=== PATIENT | male | born 1960 | race Caucasian/White ===

== ENCOUNTER 2016-06-18 16:26 | Inpatient (IN) | payer MEDICAID, OTHER, SELFPAY ==
[~2016-06-18] VITALS: Ht 167.6 cm; Wt 99.7 kg
[2016-06-18] MEDS ORDERED: ONDANSETRON 2MG/ML, 2ML ONE (17:20)
[2016-06-18] MEDS ORDERED: ASPIRIN 81 MG TABLET CHEW ONE (17:20)
[2016-06-18] MEDS ORDERED: KETOROLAC 30 MG/1 ML ONE (17:20)
[2016-06-18] MEDS ORDERED: LORazepam 2 MG/ML, 1ML ONE (17:21)
[2016-06-18] MEDS ORDERED: ONDANSETRON 2MG/ML, 2ML IVPush ONE (17:30)
[2016-06-18] MEDS ORDERED: ASPIRIN 81 MG TABLET CHEW PO ONE (17:30)
[2016-06-18] MEDS ORDERED: SODIUM CHLORIDE FLUSH 10ML SYR IVF ONE ×2 (17:30→19:00)
[2016-06-18] MEDS ORDERED: LORazepam 2 MG/ML, 1ML IVPush ONE (17:30)
[2016-06-18] MEDS ORDERED: KETOROLAC 30 MG/1 ML IVPush ONE (17:30)
[2016-06-18 17:45] LABS: ASPARTATE AMINO TRANSFERASE 13 U/L (15-37); BLOOD UREA NITROGEN 14 mg/dL (7-18)
[2016-06-18 17:51] LABS: IS PT STATUS REG ER OR PRE ER? YES
[2016-06-18 18:22] LABS: DIFF TOTAL CELLS COUNTED 100 CELL DIFF
[2016-06-18 18:25] LABS: MONOS WITH VACUOLES 1+; VERIFY COUNTS? YES
[2016-06-18] MEDS ORDERED: SODIUM CHLORIDE 0.9% 1,000 ML IV ONE (18:47)
[2016-06-18 18:53] LABS: DAU SCREEN DISCLAIMER
[2016-06-18] MEDS ORDERED: CEFTRIAXONE PMX 1GM/50ML 50 ML IVPB ONE (19:00)
[2016-06-18] MEDS ORDERED: SODIUM CHLORIDE 0.9% 1,000ML IVBOLUS ONE (19:00)
[2016-06-18] MEDS ORDERED: AZITHROMYCIN 500 MG in SODIUM CHLORIDE 0.9% 250 ML IV ONE (19:00)
[2016-06-18] MEDS ORDERED: HYDROmorphone 1 MG/ML, 1ML IV ONE (19:00)
[2016-06-18] MEDS ORDERED: HYDROmorphone 1 MG/ML, 1ML ONE (19:02)
[2016-06-18] MEDS ORDERED: CEFTRIAXONE PMX 1GM/50ML 50 ML ONE (19:04)
[2016-06-18 19:17] LABS: ICTOTEST POSITIVE
[2016-06-18] MEDS ORDERED: BISACODYL 10 MG SUPP PR PRN (21:30)
[2016-06-18] MEDS ORDERED: POLYETHYLENE GLYCOL 17 GM PACKET PO PRN (21:30)
[2016-06-18] MEDS ORDERED: CEFTRIAXONE PMX 1GM/50ML 50 ML IV SCH (21:30)
[2016-06-18] MEDS ORDERED: METHOCARBAMOL 750 MG TABLET PO PRN (21:30)
[2016-06-18] MEDS ORDERED: POTASSIUM CHLORIDE 20 MEQ TAB.ER.PRT PO ONE (21:30)
[2016-06-18] MEDS ORDERED: ONDANSETRON 2MG/ML, 2ML IVP PRN (21:30)
[2016-06-18] MEDS: HEPARIN 5,000 UNITS/ML, 1ML SQ SCH (23:01)
[2016-06-18] MEDS: SODIUM CHLORIDE 0.9% 1,000 ML IV SCH (23:02)
[2016-06-18 23:08] VITALS: BP 144/85
[2016-06-18] MEDS: OXYcodone IR 5MG TABLET PO PRN (23:45)
[2016-06-19] MEDS: ACETAMINOPHEN 325 MG TABLET PO PRN (00:44)
[2016-06-19 02:06] VITALS: BP 155/96
[2016-06-19] MEDS ORDERED: OMNIPAQUE 350 MG/ML, 100ML BOTTLE ONE (04:40)
[2016-06-19] MEDS: OXYcodone IR 5MG TABLET PO PRN (04:44)
[2016-06-19] MEDS: HEPARIN 5,000 UNITS/ML, 1ML SQ SCH ×3 (06:24→21:51)
[2016-06-19 06:36] LABS: BLOOD UREA NITROGEN 16 mg/dL (7-18)
[2016-06-19 06:38] LABS: DIFF TOTAL CELLS COUNTED 100 CELL DIFF
[2016-06-19 06:40] LABS: ASPARTATE AMINO TRANSFERASE 13 U/L (15-37); VERIFY COUNTS? YES
[2016-06-19 06:44] LABS: IS PT STATUS REG ER OR PRE ER? NO
[2016-06-19 06:59] VITALS: BP 134/84
[2016-06-19] MEDS ORDERED: VANCOMYCIN PMX 1GM/200ML 200 ML IV ONE (07:30)
[2016-06-19] MEDS ORDERED: VANCOMYCIN PER PHARMACY MC PRN (07:30)
[2016-06-19] MEDS ORDERED: PHARMACOKINETIC CONSULTATION MC ONE (08:00)
[2016-06-19] MEDS ORDERED: POTASSIUM CHLORIDE 20 MEQ TAB.ER.PRT PO ONE (08:00)
[2016-06-19] MEDS ORDERED: PHARMACOKINETIC MONITORING MC PRN (08:00)
[2016-06-19] MEDS: PIPERACILLIN/TAZO/PMX 3.375GM 50 ML IV SCH ×3 (08:27→19:54)
[2016-06-19] MEDS: VANCOMYCIN 1,800 MG in SODIUM CHLORIDE 0.9% 250 ML IV SCH ×2 (08:29→21:51)
[2016-06-19] MEDS: LOSARTAN 25MG TABLET PO SCH (08:29)
[2016-06-19] MEDS: SENNA/DOCUSATE TABLET PO SCH (08:29)
[2016-06-19] MEDS: SODIUM CHLORIDE 0.9% 1,000 ML IV SCH (08:43)
[2016-06-19] MEDS: HYDROmorphone 2 MG/ML, 1ML IV PRN ×3 (08:43→19:54)
[2016-06-19 13:50] VITALS: BP 141/79
[2016-06-19] MEDS ORDERED: ALBUTEROL/IPRATROPIUM 2.5MG/0.5MG, 3 ML ONE (15:19)
[2016-06-19] MEDS: ALBUTEROL/IPRATROPIUM 2.5MG/0.5MG, 3 ML NPPB SCH ×2 (15:20→20:30)
[2016-06-19] MEDS ORDERED: AZITHROMYCIN 500 MG in SODIUM CHLORIDE 0.9% 250 ML IV SCH (16:00)
[2016-06-19 18:59] VITALS: BP 157/91
[2016-06-20] MEDS: HYDROmorphone 2 MG/ML, 1ML IV PRN (00:30)
[2016-06-20 01:02] VITALS: BP 154/82
[2016-06-20] MEDS: PIPERACILLIN/TAZO/PMX 3.375GM 50 ML IV SCH ×4 (02:10→22:32)
[2016-06-20] MEDS: HEPARIN 5,000 UNITS/ML, 1ML SQ SCH ×4 (05:39→22:32)
[2016-06-20 06:41] LABS: BLOOD UREA NITROGEN 17 mg/dL (7-18)
[2016-06-20 06:55] VITALS: BP 139/80
[2016-06-20] MEDS: ALBUTEROL/IPRATROPIUM 2.5MG/0.5MG, 3 ML NPPB SCH ×4 (06:55→20:30)
[2016-06-20] MEDS ORDERED: FENTANYL PF 100 MCG/2ML ONE (07:58)
[2016-06-20] MEDS ORDERED: NALOXONE 1 MG/ML, 2ML ONE (07:59)
[2016-06-20] MEDS ORDERED: MIDAZOLAM 1 MG/ML, 5ML ONE (07:59)
[2016-06-20] MEDS ORDERED: FLUMAZENIL 0.1 MG/1 ML, 5ML ONE (07:59)
[2016-06-20] MEDS ORDERED: KETOROLAC 30 MG/1 ML IVPush PRN (08:00)
[2016-06-20] MEDS: SENNA/DOCUSATE TABLET PO SCH (09:00)
[2016-06-20] MEDS: LOSARTAN 25MG TABLET PO SCH (10:59)
[2016-06-20] MEDS ORDERED: HYDROmorphone 2 MG/ML, 1ML IV PRN (12:30)
[2016-06-20] MEDS: VANCOMYCIN 1,800 MG in SODIUM CHLORIDE 0.9% 250 ML IV SCH ×2 (14:30→16:30)
[2016-06-20 16:09] VITALS: BP 155/90
[2016-06-20 20:00] VITALS: BP 165/89
[2016-06-20] MEDS: OXYcodone IR 5MG TABLET PO PRN (20:09)
[2016-06-21 00:14] VITALS: BP 138/59
[2016-06-21] MEDS: ZOLPIDEM 5MG TABLET PO PRN ×2 (02:26→22:01)
[2016-06-21] MEDS: PIPERACILLIN/TAZO/PMX 3.375GM 50 ML IV SCH ×4 (04:03→22:01)
[2016-06-21] MEDS: OXYcodone IR 5MG TABLET PO PRN ×2 (04:10→20:51)
[2016-06-21] MEDS: VANCOMYCIN 1,800 MG in SODIUM CHLORIDE 0.9% 250 ML IV SCH (04:46)
[2016-06-21] MEDS: HEPARIN 5,000 UNITS/ML, 1ML SQ SCH ×3 (06:34→22:56)
[2016-06-21 06:38] VITALS: BP 136/68
[2016-06-21] MEDS: ALBUTEROL/IPRATROPIUM 2.5MG/0.5MG, 3 ML NPPB SCH ×4 (07:10→19:36)
[2016-06-21 07:43] LABS: ASPARTATE AMINO TRANSFERASE 18 U/L (15-37); BLOOD UREA NITROGEN 16 mg/dL (7-18)
[2016-06-21 08:07] LABS: DIFF TOTAL CELLS COUNTED 100 CELL DIFF
[2016-06-21 08:29] LABS: VERIFY COUNTS? YES
[2016-06-21] MEDS: LOSARTAN 25MG TABLET PO SCH (08:40)
[2016-06-21] MEDS: SENNA/DOCUSATE TABLET PO SCH (08:41)
[2016-06-21 08:52] LABS: HIV 1&2 ANTIBODY SCREEN Nonreactive (Nonreactive); HIV-1 p24 ANTIGEN Nonreactive (Nonreactive)
[2016-06-21 10:24] LABS: HEPATITIS C VIRUS ANTIBODY Nonreactive (Nonreactive)
[2016-06-21 12:44] VITALS: BP 140/79
[2016-06-21 19:06] VITALS: BP 136/88
[2016-06-22 01:12] VITALS: BP 156/80
[2016-06-22] MEDS: PIPERACILLIN/TAZO/PMX 3.375GM 50 ML IV SCH ×4 (03:56→23:48)
[2016-06-22 06:28] LABS: ASPARTATE AMINO TRANSFERASE 23 U/L (15-37); BLOOD UREA NITROGEN 15 mg/dL (7-18)
[2016-06-22] MEDS: ALBUTEROL/IPRATROPIUM 2.5MG/0.5MG, 3 ML NPPB SCH ×3 (06:42→19:48)
[2016-06-22 06:45] VITALS: BP 166/89
[2016-06-22] MEDS: HEPARIN 5,000 UNITS/ML, 1ML SQ SCH ×3 (07:00→23:47)
[2016-06-22] MEDS: SENNA/DOCUSATE TABLET PO SCH (09:00)
[2016-06-22] MEDS: LOSARTAN 25MG TABLET PO SCH (09:00)
[2016-06-22 12:41] VITALS: BP 175/102
[2016-06-22 18:22] VITALS: BP 165/79
[2016-06-22] MEDS: ENALAPRILAT 1.25 MG/ML, 2ML IVPush PRN (19:43)
[2016-06-22] MEDS: OXYcodone IR 5MG TABLET PO PRN ×2 (20:10→23:52)
[2016-06-22] MEDS: ZOLPIDEM 5MG TABLET PO PRN (21:51)
[2016-06-23 02:06] VITALS: BP 153/74
[2016-06-23] MEDS: PIPERACILLIN/TAZO/PMX 3.375GM 50 ML IV SCH ×3 (05:23→17:57)
[2016-06-23] MEDS: OXYcodone IR 5MG TABLET PO PRN (05:23)
[2016-06-23 05:28] LABS: BLOOD UREA NITROGEN 14 mg/dL (7-18)
[2016-06-23] MEDS: ALBUTEROL/IPRATROPIUM 2.5MG/0.5MG, 3 ML NPPB SCH ×2 (07:00→11:00)
[2016-06-23 07:53] VITALS: BP 177/97
[2016-06-23] MEDS: LOSARTAN 25MG TABLET PO SCH (08:31)
[2016-06-23] MEDS: HEPARIN 5,000 UNITS/ML, 1ML SQ SCH ×2 (08:31→16:36)
[2016-06-23] MEDS: SENNA/DOCUSATE TABLET PO SCH (08:33)
[2016-06-23] MEDS ORDERED: LISINOPRIL 5 MG TABLET PO SCH (09:00)
[2016-06-23] MEDS: ENALAPRILAT 1.25 MG/ML, 2ML IVPush PRN (10:45)
[2016-06-23] MEDS: LOSARTAN 50MG TABLET PO SCH (11:39)
[2016-06-23] MEDS ORDERED: LOSARTAN 25MG TABLET PO ONE (12:00)
[2016-06-23 14:06] VITALS: BP 156/88
[2016-06-23] MEDS ORDERED: ALBUTEROL/IPRATROPIUM 2.5MG/0.5MG, 3 ML NPPB PRN (15:00)
[2016-06-23 19:58] VITALS: BP 149/80
[2016-06-23] MEDS: ZOLPIDEM 5MG TABLET PO PRN (22:27)
[2016-06-24] MEDS: OXYcodone IR 5MG TABLET PO PRN ×2 (00:23→13:43)
[2016-06-24] MEDS: PIPERACILLIN/TAZO/PMX 3.375GM 50 ML IV SCH ×2 (00:24→06:03)
[2016-06-24] MEDS: HEPARIN 5,000 UNITS/ML, 1ML SQ SCH ×3 (00:24→22:45)
[2016-06-24] MEDS: SENNA/DOCUSATE TABLET PO SCH (09:00)
[2016-06-24] MEDS: CEFAZOLIN PMX 2GM/100ML 100 ML IV SCH ×2 (10:59→18:40)
[2016-06-24] MEDS: LOSARTAN 50MG TABLET PO SCH (11:02)
[2016-06-24 13:40] VITALS: BP 164/86
[2016-06-24 18:50] VITALS: BP 162/89
[2016-06-25 01:49] VITALS: BP 151/93
[2016-06-25] MEDS: CEFAZOLIN PMX 2GM/50ML 50 ML IV SCH ×3 (03:29→18:32)
[2016-06-25] MEDS: HEPARIN 5,000 UNITS/ML, 1ML SQ SCH ×3 (06:45→23:10)
[2016-06-25 07:02] VITALS: BP_SYST 174; BP_SYST 178; BP_DIAS 95; BP_DIAS 98
[2016-06-25] MEDS: POTASSIUM CHLORIDE 20 MEQ PACKET PO SCH (08:16)
[2016-06-25] MEDS: LOSARTAN 50MG TABLET PO SCH (08:17)
[2016-06-25] MEDS: SENNA/DOCUSATE TABLET PO SCH (08:17)
[2016-06-25] MEDS: HYDROCHLOROTHIAZIDE 25 MG TABLET PO SCH (08:17)
[2016-06-25 14:13] VITALS: BP 158/92
[2016-06-25 19:05] VITALS: BP 142/107
[2016-06-26 01:28] VITALS: BP 163/99
[2016-06-26] MEDS: CEFAZOLIN PMX 2GM/50ML 50 ML IV SCH ×3 (02:29→20:02)
[2016-06-26 02:31] VITALS: BP 147/87
[2016-06-26] MEDS: HEPARIN 5,000 UNITS/ML, 1ML SQ SCH ×4 (06:45→22:56)
[2016-06-26 06:53] LABS: ASPARTATE AMINO TRANSFERASE 56 U/L (15-37); BLOOD UREA NITROGEN 19 mg/dL (7-18)
[2016-06-26 07:10] VITALS: BP 158/88
[2016-06-26] MEDS: POTASSIUM CHLORIDE 20 MEQ PACKET PO SCH (08:00)
[2016-06-26] MEDS: SENNA/DOCUSATE TABLET PO SCH (09:00)
[2016-06-26] MEDS: LOSARTAN 50MG TABLET PO SCH (11:30)
[2016-06-26] MEDS: HYDROCHLOROTHIAZIDE 25 MG TABLET PO SCH (11:31)
[2016-06-26 12:06] LABS: LYME DISEASE IGG/IGM TOTAL AB <0.91 ISR (0.00-0.90); LYME DISEASE IGM <0.80 index (0.00-0.79)
[2016-06-26 13:05] VITALS: BP 156/94
[2016-06-26 17:06] LABS: ANA DIRECT Negative (Negative); COMPLEMENT C3 153 mg/dL (82-167); COMPLEMENT C4 25 mg/dL (14-44); INTERMYOFIBRILLAR AB Negative (Neg:<1:20); MITOCHONDRIAL (M2) AB 7.3 Units (0.0-20.0); PARIETAL CELL AB 18.2 Units (0.0-20.0); RA LATEX TURBIDITY 21.4 IU/mL (0.0-13.9); SARCOLEMMA AB Negative (Neg:<1:20); SJOGREN'S SS-A AB <0.2 AI (0.0-0.9); STRIATION AB Negative (Neg:<1:40); THYROID PEROXIDASE (TPO) AB 8 IU/mL (0-34)
[2016-06-26 21:26] VITALS: BP 153/98
[2016-06-27] MEDS: CEFAZOLIN PMX 2GM/50ML 50 ML IV SCH ×3 (03:07→20:06)
[2016-06-27 03:29] VITALS: BP 139/94
[2016-06-27] MEDS: HEPARIN 5,000 UNITS/ML, 1ML SQ SCH ×3 (05:31→23:27)
[2016-06-27 06:02] LABS: ASPARTATE AMINO TRANSFERASE 49 U/L (15-37); BLOOD UREA NITROGEN 27 mg/dL (7-18)
[2016-06-27 07:35] VITALS: BP 145/94
[2016-06-27] MEDS: POTASSIUM CHLORIDE 20 MEQ PACKET PO SCH (08:00)
[2016-06-27] MEDS: SENNA/DOCUSATE TABLET PO SCH (09:00)
[2016-06-27] MEDS: LOSARTAN 50MG TABLET PO SCH (09:03)
[2016-06-27] MEDS: HYDROCHLOROTHIAZIDE 25 MG TABLET PO SCH (09:04)
[2016-06-27 14:09] VITALS: BP 129/87
[2016-06-27] MEDS: ZOLPIDEM 5MG TABLET PO PRN (20:24)
[2016-06-27 21:35] VITALS: BP 130/80
[2016-06-27] MEDS: OXYcodone IR 5MG TABLET PO PRN (23:24)
[2016-06-28] MEDS: CEFAZOLIN PMX 2GM/50ML 50 ML IV SCH ×3 (03:56→20:03)
[2016-06-28 04:10] VITALS: BP 124/71
[2016-06-28 04:24] LABS: ASPARTATE AMINO TRANSFERASE 31 U/L (15-37); BLOOD UREA NITROGEN 30 mg/dL (7-18)
[2016-06-28 07:50] VITALS: BP 121/78
[2016-06-28] MEDS: SENNA/DOCUSATE TABLET PO SCH (09:00)
[2016-06-28] MEDS: HEPARIN 5,000 UNITS/ML, 1ML SQ SCH ×2 (09:57→17:36)
[2016-06-28] MEDS: POTASSIUM CHLORIDE 20 MEQ PACKET PO SCH (09:57)
[2016-06-28] MEDS: LOSARTAN 50MG TABLET PO SCH (09:58)
[2016-06-28] MEDS: HYDROCHLOROTHIAZIDE 25 MG TABLET PO SCH (09:58)
[2016-06-28] MEDS: OXYcodone IR 5MG TABLET PO PRN (09:59)
[2016-06-28 13:41] VITALS: BP 113/73
[2016-06-28] MEDS ORDERED: TRAZODONE 50MG TABLET PO SCH (21:00)
[2016-06-28 22:52] VITALS: BP 104/67
[2016-06-29] VITALS: BP 175/91
[2016-06-29 00:53] VITALS: BP 118/78
[2016-06-29] MEDS: CEFAZOLIN PMX 2GM/50ML 50 ML IV SCH ×3 (04:01→20:19)
[2016-06-29 06:45] VITALS: BP 115/71
[2016-06-29] MEDS: SENNA/DOCUSATE TABLET PO SCH (09:00)
[2016-06-29] MEDS: LOSARTAN 50MG TABLET PO SCH ×2 (09:00→10:08)
[2016-06-29] MEDS: POTASSIUM CHLORIDE 20 MEQ PACKET PO SCH (10:08)
[2016-06-29] MEDS: HEPARIN 5,000 UNITS/ML, 1ML SQ SCH ×3 (10:08→17:09)
[2016-06-29] MEDS: HYDROCHLOROTHIAZIDE 25 MG TABLET PO SCH (10:09)
[2016-06-29 13:53] VITALS: BP 125/75
[2016-06-29 19:21] VITALS: BP 126/76
[2016-06-29] MEDS: TRAZODONE 150MG TABLET PO SCH (20:19)
[2016-06-30 00:45] VITALS: BP 133/85
[2016-06-30] MEDS: HEPARIN 5,000 UNITS/ML, 1ML SQ SCH ×4 (01:11→21:37)
[2016-06-30] MEDS: CEFAZOLIN PMX 2GM/50ML 50 ML IV SCH ×3 (04:28→21:37)
[2016-06-30 05:01] LABS: ASPARTATE AMINO TRANSFERASE 21 U/L (15-37); BLOOD UREA NITROGEN 29 mg/dL (7-18)
[2016-06-30 07:40] VITALS: BP 135/86
[2016-06-30] MEDS: LOSARTAN 50MG TABLET PO SCH (11:15)
[2016-06-30] MEDS: HYDROCHLOROTHIAZIDE 25 MG TABLET PO SCH (11:16)
[2016-06-30] MEDS: SENNA/DOCUSATE TABLET PO SCH (11:16)
[2016-06-30] MEDS: POTASSIUM CHLORIDE 20 MEQ PACKET PO SCH (11:17)
[2016-06-30 14:00] VITALS: BP 128/78
[2016-06-30 19:17] VITALS: BP 120/65
[2016-06-30] MEDS: TRAZODONE 150MG TABLET PO SCH (21:37)
[2016-06-30 22:06] LABS: COCCIDIOIDES AB (CF) <1:2 (<1:2); COCCIDIOIDES IGG 0.3 IV (<=0.9); COCCIDIOIDES IGM 0.5 IV (<=0.9)
[2016-07-01 01:50] VITALS: BP 120/75
[2016-07-01 04:29] LABS: ASPARTATE AMINO TRANSFERASE 21 U/L (15-37); BLOOD UREA NITROGEN 31 mg/dL (7-18)
[2016-07-01] MEDS: CEFAZOLIN PMX 2GM/50ML 50 ML IV SCH ×2 (05:51→15:35)
[2016-07-01] MEDS: HEPARIN 5,000 UNITS/ML, 1ML SQ SCH ×4 (05:51→18:46)
[2016-07-01 07:46] VITALS: BP 127/82
[2016-07-01] MEDS: SENNA/DOCUSATE TABLET PO SCH (09:00)
[2016-07-01] MEDS: POTASSIUM CHLORIDE 20 MEQ PACKET PO SCH (09:52)
[2016-07-01] MEDS: LOSARTAN 50MG TABLET PO SCH (09:56)
[2016-07-01] MEDS: HYDROCHLOROTHIAZIDE 25 MG TABLET PO SCH (09:56)
[2016-07-01 13:57] VITALS: BP 143/77
[2016-07-01 19:11] VITALS: BP 111/76
[2016-07-01] MEDS: TRAZODONE 150MG TABLET PO SCH (21:58)
[2016-07-02] MEDS: HEPARIN 5,000 UNITS/ML, 1ML SQ SCH ×3 (00:07→17:52)
[2016-07-02] MEDS: CEFAZOLIN PMX 2GM/50ML 50 ML IV SCH ×4 (00:07→17:52)
[2016-07-02 01:38] VITALS: BP 121/79
[2016-07-02 04:31] LABS: BLOOD UREA NITROGEN 29 mg/dL (7-18)
[2016-07-02 04:36] LABS: ASPARTATE AMINO TRANSFERASE 20 U/L (15-37)
[2016-07-02 07:28] VITALS: BP 128/84
[2016-07-02] MEDS: POTASSIUM CHLORIDE 20 MEQ PACKET PO SCH (08:00)
[2016-07-02] MEDS: HYDROCHLOROTHIAZIDE 25 MG TABLET PO SCH (08:50)
[2016-07-02] MEDS: LOSARTAN 50MG TABLET PO SCH (08:50)
[2016-07-02] MEDS: SENNA/DOCUSATE TABLET PO SCH (09:00)
[2016-07-02 13:32] VITALS: BP 123/77
[2016-07-02 18:45] VITALS: BP 124/80
[2016-07-02] MEDS: TRAZODONE 150MG TABLET PO SCH (21:03)
[2016-07-03] MEDS: HEPARIN 5,000 UNITS/ML, 1ML SQ SCH ×3 (02:11→17:00)
[2016-07-03] MEDS: CEFAZOLIN PMX 2GM/50ML 50 ML IV SCH ×3 (02:11→18:00)
[2016-07-03 02:48] VITALS: BP 126/80
[2016-07-03 06:18] LABS: BLOOD UREA NITROGEN 32 mg/dL (7-18)
[2016-07-03 06:22] LABS: ASPARTATE AMINO TRANSFERASE 16 U/L (15-37); C-REACTIVE PROTEIN, QUANT 0.55 mg/dL (0.02-0.49)
[2016-07-03 07:28] VITALS: BP 125/81
[2016-07-03] MEDS: SENNA/DOCUSATE TABLET PO SCH (09:00)
[2016-07-03] MEDS: POTASSIUM CHLORIDE 20 MEQ PACKET PO SCH (09:14)
[2016-07-03] MEDS: LOSARTAN 50MG TABLET PO SCH (09:15)
[2016-07-03] MEDS: HYDROCHLOROTHIAZIDE 25 MG TABLET PO SCH (09:15)
[2016-07-03 13:00] VITALS: BP 124/71
[2016-07-03 19:01] VITALS: BP 125/78
[2016-07-03] MEDS ORDERED: TRAZODONE 100MG TABLET PO SCH (21:00)
[2016-07-04 02:57] VITALS: BP 116/74
[2016-07-04] MEDS: HEPARIN 5,000 UNITS/ML, 1ML SQ SCH ×3 (03:42→19:48)
[2016-07-04] MEDS: CEFAZOLIN PMX 2GM/50ML 50 ML IV SCH ×3 (03:42→19:48)
[2016-07-04 07:26] VITALS: BP 109/73
[2016-07-04] MEDS: LOSARTAN 50MG TABLET PO SCH (08:08)
[2016-07-04] MEDS: POTASSIUM CHLORIDE 20 MEQ PACKET PO SCH (08:08)
[2016-07-04] MEDS: HYDROCHLOROTHIAZIDE 25 MG TABLET PO SCH (08:11)
[2016-07-04] MEDS: SENNA/DOCUSATE TABLET PO SCH (08:11)
[2016-07-04 12:35] VITALS: BP 151/85
[2016-07-04 19:53] VITALS: BP 132/82
[2016-07-04] MEDS ORDERED: QUETIAPINE 100MG TABLET PO SCH (21:00)
[2016-07-05 02:09] VITALS: BP 147/88
[2016-07-05] MEDS: HEPARIN 5,000 UNITS/ML, 1ML SQ SCH ×4 (04:00→20:13)
[2016-07-05] MEDS: CEFAZOLIN PMX 2GM/50ML 50 ML IV SCH ×3 (04:21→20:14)
[2016-07-05 07:15] VITALS: BP 129/83
[2016-07-05] MEDS: HYDROCHLOROTHIAZIDE 25 MG TABLET PO SCH (07:50)
[2016-07-05] MEDS: POTASSIUM CHLORIDE 20 MEQ PACKET PO SCH (07:50)
[2016-07-05] MEDS: LOSARTAN 50MG TABLET PO SCH (07:50)
[2016-07-05] MEDS: SENNA/DOCUSATE TABLET PO SCH (07:53)
[2016-07-05 13:37] VITALS: BP 127/82
[2016-07-05 19:35] VITALS: BP 154/99
[2016-07-05 20:18] VITALS: BP 159/96
[2016-07-05] MEDS: QUETIAPINE 100MG TABLET PO SCH (21:03)
[2016-07-06 02:19] VITALS: BP 118/82
[2016-07-06] MEDS: HEPARIN 5,000 UNITS/ML, 1ML SQ SCH ×3 (04:00→20:27)
[2016-07-06] MEDS: CEFAZOLIN PMX 2GM/50ML 50 ML IV SCH ×3 (04:05→20:27)
[2016-07-06 07:25] VITALS: BP 142/92
[2016-07-06] MEDS: POTASSIUM CHLORIDE 20 MEQ PACKET PO SCH (08:49)
[2016-07-06] MEDS: LOSARTAN 50MG TABLET PO SCH (08:49)
[2016-07-06] MEDS: SENNA/DOCUSATE TABLET PO SCH (08:50)
[2016-07-06] MEDS: HYDROCHLOROTHIAZIDE 25 MG TABLET PO SCH (08:50)
[2016-07-06 14:10] VITALS: BP 150/88
[2016-07-06 20:04] VITALS: BP 150/101
[2016-07-06] MEDS: QUETIAPINE 100MG TABLET PO SCH (20:27)
[2016-07-07 02:59] VITALS: BP 136/88
[2016-07-07] MEDS: HEPARIN 5,000 UNITS/ML, 1ML SQ SCH ×4 (04:00→21:01)
[2016-07-07] MEDS: CEFAZOLIN PMX 2GM/50ML 50 ML IV SCH ×3 (04:23→21:00)
[2016-07-07 08:15] VITALS: BP 129/81
[2016-07-07] MEDS: HYDROCHLOROTHIAZIDE 25 MG TABLET PO SCH (08:29)
[2016-07-07] MEDS: LOSARTAN 50MG TABLET PO SCH (08:30)
[2016-07-07] MEDS: POTASSIUM CHLORIDE 20 MEQ PACKET PO SCH (08:31)
[2016-07-07] MEDS: SENNA/DOCUSATE TABLET PO SCH (08:32)
[2016-07-07 15:36] VITALS: BP 132/74
[2016-07-07 19:25] VITALS: BP 154/96
[2016-07-07] MEDS: QUETIAPINE 100MG TABLET PO SCH (21:00)
[2016-07-08 02:25] VITALS: BP 131/70
[2016-07-08] MEDS: CEFAZOLIN PMX 2GM/50ML 50 ML IV SCH ×3 (04:11→20:17)
[2016-07-08] MEDS: HEPARIN 5,000 UNITS/ML, 1ML SQ SCH ×3 (04:12→20:17)
[2016-07-08 07:15] VITALS: BP 129/80
[2016-07-08] MEDS: HYDROCHLOROTHIAZIDE 25 MG TABLET PO SCH (08:40)
[2016-07-08] MEDS: POTASSIUM CHLORIDE 20 MEQ PACKET PO SCH (08:41)
[2016-07-08] MEDS: SENNA/DOCUSATE TABLET PO SCH (08:41)
[2016-07-08] MEDS: LOSARTAN 50MG TABLET PO SCH (08:41)
[2016-07-08 15:40] VITALS: BP 132/72
[2016-07-08 19:21] VITALS: BP 147/88
[2016-07-08] MEDS: QUETIAPINE 100MG TABLET PO SCH (20:17)
[2016-07-09 01:54] VITALS: BP 107/70
[2016-07-09] MEDS: HEPARIN 5,000 UNITS/ML, 1ML SQ SCH ×3 (04:00→20:14)
[2016-07-09] MEDS: CEFAZOLIN PMX 2GM/50ML 50 ML IV SCH ×3 (04:17→20:13)
[2016-07-09 08:57] VITALS: BP 142/80
[2016-07-09] MEDS: SENNA/DOCUSATE TABLET PO SCH (09:00)
[2016-07-09] MEDS: LOSARTAN 50MG TABLET PO SCH (09:32)
[2016-07-09] MEDS: HYDROCHLOROTHIAZIDE 25 MG TABLET PO SCH (09:33)
[2016-07-09] MEDS: POTASSIUM CHLORIDE 20 MEQ PACKET PO SCH (09:33)
[2016-07-09 14:23] VITALS: BP 161/78
[2016-07-09 14:26] VITALS: BP 113/71
[2016-07-09 19:19] VITALS: BP 159/101
[2016-07-09] MEDS: QUETIAPINE 100MG TABLET PO SCH (20:14)
[2016-07-10 01:25] VITALS: BP 146/88
[2016-07-10] MEDS: HEPARIN 5,000 UNITS/ML, 1ML SQ SCH ×3 (04:26→20:55)
[2016-07-10] MEDS: CEFAZOLIN PMX 2GM/50ML 50 ML IV SCH ×3 (04:27→20:56)
[2016-07-10 06:42] LABS: ASPARTATE AMINO TRANSFERASE 14 U/L (15-37); BLOOD UREA NITROGEN 27 mg/dL (7-18); C-REACTIVE PROTEIN, QUANT 0.39 mg/dL (0.02-0.49)
[2016-07-10 08:05] VITALS: BP 159/103
[2016-07-10] MEDS: SENNA/DOCUSATE TABLET PO SCH (09:15)
[2016-07-10] MEDS: HYDROCHLOROTHIAZIDE 25 MG TABLET PO SCH (09:16)
[2016-07-10] MEDS: LOSARTAN 50MG TABLET PO SCH (09:16)
[2016-07-10] MEDS: POTASSIUM CHLORIDE 20 MEQ PACKET PO SCH (09:16)
[2016-07-10 13:50] VITALS: BP 151/91
[2016-07-10 18:40] VITALS: BP 157/89
[2016-07-10] MEDS: QUETIAPINE 100MG TABLET PO SCH (20:56)
[2016-07-11 02:20] VITALS: BP 114/73
[2016-07-11] MEDS: HEPARIN 5,000 UNITS/ML, 1ML SQ SCH ×3 (04:22→20:33)
[2016-07-11] MEDS: CEFAZOLIN PMX 2GM/50ML 50 ML IV SCH ×3 (04:22→20:34)
[2016-07-11 08:45] VITALS: BP 144/97
[2016-07-11] MEDS: HYDROCHLOROTHIAZIDE 25 MG TABLET PO SCH (08:51)
[2016-07-11] MEDS: POTASSIUM CHLORIDE 20 MEQ PACKET PO SCH (08:51)
[2016-07-11] MEDS: SENNA/DOCUSATE TABLET PO SCH (08:51)
[2016-07-11] MEDS: LOSARTAN 50MG TABLET PO SCH (08:51)
[2016-07-11 13:15] VITALS: BP 154/92
[2016-07-11 19:48] VITALS: BP 145/87
[2016-07-11] MEDS: QUETIAPINE 100MG TABLET PO SCH (20:33)
[2016-07-12 02:38] VITALS: BP 129/80
[2016-07-12] MEDS: HEPARIN 5,000 UNITS/ML, 1ML SQ SCH ×3 (04:05→20:00)
[2016-07-12] MEDS: CEFAZOLIN PMX 2GM/50ML 50 ML IV SCH ×3 (04:09→20:57)
[2016-07-12 07:00] VITALS: BP 129/84
[2016-07-12] MEDS: POTASSIUM CHLORIDE 20 MEQ PACKET PO SCH (08:21)
[2016-07-12] MEDS: LOSARTAN 50MG TABLET PO SCH (08:22)
[2016-07-12] MEDS: SENNA/DOCUSATE TABLET PO SCH (08:22)
[2016-07-12] MEDS: HYDROCHLOROTHIAZIDE 25 MG TABLET PO SCH (08:22)
[2016-07-12 15:30] VITALS: BP 159/93
[2016-07-12 19:51] VITALS: BP 156/93
[2016-07-12] MEDS: QUETIAPINE 100MG TABLET PO SCH (20:58)
[2016-07-13 01:33] VITALS: BP 117/80
[2016-07-13] MEDS: HEPARIN 5,000 UNITS/ML, 1ML SQ SCH ×3 (04:00→19:55)
[2016-07-13] MEDS: CEFAZOLIN PMX 2GM/50ML 50 ML IV SCH ×3 (04:26→19:56)
[2016-07-13 07:25] VITALS: BP 145/87
[2016-07-13] MEDS: SENNA/DOCUSATE TABLET PO SCH (09:00)
[2016-07-13] MEDS: HYDROCHLOROTHIAZIDE 25 MG TABLET PO SCH (09:55)
[2016-07-13] MEDS: LOSARTAN 50MG TABLET PO SCH (09:56)
[2016-07-13] MEDS: POTASSIUM CHLORIDE 20 MEQ PACKET PO SCH (09:56)
[2016-07-13 12:59] VITALS: BP 158/99
[2016-07-13 19:31] VITALS: BP 151/110
[2016-07-13] MEDS: QUETIAPINE 100MG TABLET PO SCH (19:56)
[2016-07-14 01:53] VITALS: BP 145/84
[2016-07-14] MEDS: CEFAZOLIN PMX 2GM/50ML 50 ML IV SCH ×3 (03:55→20:19)
[2016-07-14] MEDS: HEPARIN 5,000 UNITS/ML, 1ML SQ SCH ×3 (03:55→20:00)
[2016-07-14 08:30] VITALS: BP 144/94
[2016-07-14] MEDS: SENNA/DOCUSATE TABLET PO SCH (11:50)
[2016-07-14] MEDS: HYDROCHLOROTHIAZIDE 25 MG TABLET PO SCH (11:56)
[2016-07-14] MEDS: LOSARTAN 50MG TABLET PO SCH (11:57)
[2016-07-14] MEDS: POTASSIUM CHLORIDE 20 MEQ PACKET PO SCH (11:57)
[2016-07-14 14:30] VITALS: BP 159/106
[2016-07-14 18:47] VITALS: BP 154/97
[2016-07-14] MEDS: QUETIAPINE 100MG TABLET PO SCH (20:19)
[2016-07-15 01:29] VITALS: BP 138/73
[2016-07-15] MEDS: HEPARIN 5,000 UNITS/ML, 1ML SQ SCH ×3 (04:00→19:46)
[2016-07-15] MEDS: CEFAZOLIN PMX 2GM/50ML 50 ML IV SCH ×3 (04:02→19:48)
[2016-07-15 07:45] VITALS: BP 123/82
[2016-07-15] MEDS: POTASSIUM CHLORIDE 20 MEQ PACKET PO SCH (08:00)
[2016-07-15] MEDS: SENNA/DOCUSATE TABLET PO SCH (09:00)
[2016-07-15] MEDS: LOSARTAN 50MG TABLET PO SCH (09:40)
[2016-07-15] MEDS: HYDROCHLOROTHIAZIDE 25 MG TABLET PO SCH (09:41)
[2016-07-15 13:01] VITALS: BP 157/98
[2016-07-15] MEDS: QUETIAPINE 100MG TABLET PO SCH (19:48)
[2016-07-15 20:09] VITALS: BP 160/95
[2016-07-16 01:30] VITALS: BP 138/78
[2016-07-16] MEDS: CEFAZOLIN PMX 2GM/50ML 50 ML IV SCH ×3 (03:55→21:19)
[2016-07-16] MEDS: HEPARIN 5,000 UNITS/ML, 1ML SQ SCH ×3 (04:00→20:00)
[2016-07-16 06:46] VITALS: BP 119/80
[2016-07-16] MEDS: POTASSIUM CHLORIDE 20 MEQ PACKET PO SCH (08:00)
[2016-07-16] MEDS: SENNA/DOCUSATE TABLET PO SCH (08:08)
[2016-07-16] MEDS: HYDROCHLOROTHIAZIDE 25 MG TABLET PO SCH (08:11)
[2016-07-16] MEDS: LOSARTAN 50MG TABLET PO SCH (08:11)
[2016-07-16 13:33] VITALS: BP 129/80
[2016-07-16 19:17] VITALS: BP 137/85
[2016-07-16] MEDS: QUETIAPINE 100MG TABLET PO SCH (21:19)
[2016-07-17 01:56] VITALS: BP 122/78
[2016-07-17] MEDS: HEPARIN 5,000 UNITS/ML, 1ML SQ SCH ×3 (04:00→20:00)
[2016-07-17] MEDS: CEFAZOLIN PMX 2GM/50ML 50 ML IV SCH ×3 (04:19→20:24)
[2016-07-17 04:49] LABS: ASPARTATE AMINO TRANSFERASE 17 U/L (15-37); BLOOD UREA NITROGEN 35 mg/dL (7-18); C-REACTIVE PROTEIN, QUANT 0.45 mg/dL (0.02-0.49)
[2016-07-17 07:00] VITALS: BP 125/86
[2016-07-17] MEDS: POTASSIUM CHLORIDE 20 MEQ PACKET PO SCH (08:00)
[2016-07-17] MEDS: SENNA/DOCUSATE TABLET PO SCH (08:56)
[2016-07-17] MEDS: LOSARTAN 50MG TABLET PO SCH (08:56)
[2016-07-17 13:58] VITALS: BP 140/84
[2016-07-17] MEDS: HYDROCHLOROTHIAZIDE 25 MG TABLET PO SCH (15:33)
[2016-07-17 19:01] VITALS: BP 147/84
[2016-07-17] MEDS: QUETIAPINE 100MG TABLET PO SCH (21:36)
[2016-07-18 00:25] VITALS: BP 127/86
[2016-07-18] MEDS: HEPARIN 5,000 UNITS/ML, 1ML SQ SCH ×3 (04:00→20:00)
[2016-07-18] MEDS: CEFAZOLIN PMX 2GM/50ML 50 ML IV SCH ×3 (04:19→20:17)
[2016-07-18 07:15] VITALS: BP 174/112
[2016-07-18] MEDS: LOSARTAN 50MG TABLET PO SCH (09:36)
[2016-07-18] MEDS: SENNA/DOCUSATE TABLET PO SCH (09:37)
[2016-07-18] MEDS: POTASSIUM CHLORIDE 20 MEQ PACKET PO SCH (09:37)
[2016-07-18] MEDS: HYDROCHLOROTHIAZIDE 25 MG TABLET PO SCH (09:37)
[2016-07-18 13:59] VITALS: BP 151/93
[2016-07-18 19:31] VITALS: BP 154/91
[2016-07-18] MEDS: QUETIAPINE 100MG TABLET PO SCH (20:17)
[2016-07-19 01:51] VITALS: BP 125/81
[2016-07-19] MEDS: HEPARIN 5,000 UNITS/ML, 1ML SQ SCH ×3 (04:00→19:51)
[2016-07-19] MEDS: CEFAZOLIN PMX 2GM/50ML 50 ML IV SCH ×3 (04:25→19:50)
[2016-07-19 07:55] VITALS: BP 124/81
[2016-07-19] MEDS: SENNA/DOCUSATE TABLET PO SCH (09:00)
[2016-07-19] MEDS: POTASSIUM CHLORIDE 20 MEQ PACKET PO SCH (09:09)
[2016-07-19] MEDS: LOSARTAN 50MG TABLET PO SCH (09:09)
[2016-07-19] MEDS: HYDROCHLOROTHIAZIDE 25 MG TABLET PO SCH (09:10)
[2016-07-19 13:59] VITALS: BP 143/90
[2016-07-19] MEDS ORDERED: GUAIFENESIN/DM 200-20MG, 10ML UDC PO PRN (18:30)
[2016-07-19 19:26] VITALS: BP 155/96
[2016-07-19] MEDS: QUETIAPINE 100MG TABLET PO SCH (19:49)
[2016-07-20 03:10] VITALS: BP 130/81
[2016-07-20] MEDS: HEPARIN 5,000 UNITS/ML, 1ML SQ SCH ×3 (04:00→20:00)
[2016-07-20] MEDS: CEFAZOLIN PMX 2GM/50ML 50 ML IV SCH ×3 (04:39→20:17)
[2016-07-20] MEDS: POTASSIUM CHLORIDE 20 MEQ PACKET PO SCH (08:24)
[2016-07-20] MEDS: LOSARTAN 50MG TABLET PO SCH (08:24)
[2016-07-20] MEDS: HYDROCHLOROTHIAZIDE 25 MG TABLET PO SCH (08:24)
[2016-07-20] MEDS: SENNA/DOCUSATE TABLET PO SCH (08:25)
[2016-07-20 08:39] VITALS: BP 158/94
[2016-07-20 15:10] VITALS: BP 147/95
[2016-07-20 19:27] VITALS: BP 143/88
[2016-07-20] MEDS: QUETIAPINE 100MG TABLET PO SCH (20:23)
[2016-07-21 01:21] VITALS: BP 136/86
[2016-07-21] MEDS: HEPARIN 5,000 UNITS/ML, 1ML SQ SCH ×3 (04:00→20:00)
[2016-07-21] MEDS: CEFAZOLIN PMX 2GM/50ML 50 ML IV SCH ×3 (04:47→20:05)
[2016-07-21] MEDS: HYDROCHLOROTHIAZIDE 25 MG TABLET PO SCH (07:35)
[2016-07-21] MEDS: LOSARTAN 50MG TABLET PO SCH (07:35)
[2016-07-21] MEDS: POTASSIUM CHLORIDE 20 MEQ PACKET PO SCH (07:35)
[2016-07-21] MEDS: SENNA/DOCUSATE TABLET PO SCH (07:35)
[2016-07-21 07:38] VITALS: BP 149/92
[2016-07-21 13:01] VITALS: BP 145/88
[2016-07-21 19:32] VITALS: BP 163/93
[2016-07-21] MEDS: QUETIAPINE 100MG TABLET PO SCH (20:05)
[2016-07-22 01:25] VITALS: BP 145/90
[2016-07-22] MEDS: HEPARIN 5,000 UNITS/ML, 1ML SQ SCH ×3 (04:00→20:00)
[2016-07-22] MEDS: CEFAZOLIN PMX 2GM/50ML 50 ML IV SCH ×3 (04:10→20:15)
[2016-07-22] MEDS: LOSARTAN 50MG TABLET PO SCH (07:58)
[2016-07-22] MEDS: SENNA/DOCUSATE TABLET PO SCH (07:58)
[2016-07-22] MEDS: POTASSIUM CHLORIDE 20 MEQ PACKET PO SCH (07:58)
[2016-07-22] MEDS: HYDROCHLOROTHIAZIDE 25 MG TABLET PO SCH (07:58)
[2016-07-22 08:10] VITALS: BP 157/95
[2016-07-22 15:05] VITALS: BP 155/94
[2016-07-22] MEDS: ACETAMINOPHEN 325 MG TABLET PO PRN (18:29)
[2016-07-22 19:14] VITALS: BP 155/95
[2016-07-22] MEDS: QUETIAPINE 100MG TABLET PO SCH (20:23)
[2016-07-23 02:03] VITALS: BP 155/95
[2016-07-23] MEDS: HEPARIN 5,000 UNITS/ML, 1ML SQ SCH ×3 (03:37→19:32)
[2016-07-23] MEDS: CEFAZOLIN PMX 2GM/50ML 50 ML IV SCH ×3 (03:45→19:32)
[2016-07-23 07:45] VITALS: BP 155/95
[2016-07-23] MEDS: POTASSIUM CHLORIDE 20 MEQ PACKET PO SCH (08:24)
[2016-07-23] MEDS: SENNA/DOCUSATE TABLET PO SCH (08:24)
[2016-07-23] MEDS: HYDROCHLOROTHIAZIDE 25 MG TABLET PO SCH (08:24)
[2016-07-23] MEDS: LOSARTAN 50MG TABLET PO SCH (08:24)
[2016-07-23] MEDS: ACETAMINOPHEN 325 MG TABLET PO PRN ×2 (08:30→15:12)
[2016-07-23 14:36] VITALS: BP 161/94
[2016-07-23] MEDS: QUETIAPINE 100MG TABLET PO SCH (19:32)
[2016-07-23 19:42] VITALS: BP 152/94
[2016-07-24] MEDS: CEFAZOLIN PMX 2GM/50ML 50 ML IV SCH ×3 (03:56→20:12)
[2016-07-24] MEDS: HEPARIN 5,000 UNITS/ML, 1ML SQ SCH ×3 (03:56→20:00)
[2016-07-24 04:59] VITALS: BP 157/88
[2016-07-24 06:10] LABS: ASPARTATE AMINO TRANSFERASE 14 U/L (15-37); BLOOD UREA NITROGEN 21 mg/dL (7-18)
[2016-07-24] MEDS: POTASSIUM CHLORIDE 20 MEQ PACKET PO SCH (09:18)
[2016-07-24] MEDS: HYDROCHLOROTHIAZIDE 25 MG TABLET PO SCH (09:18)
[2016-07-24] MEDS: LOSARTAN 50MG TABLET PO SCH (09:18)
[2016-07-24] MEDS: SENNA/DOCUSATE TABLET PO SCH (09:18)
[2016-07-24 11:33] VITALS: BP 153/79
[2016-07-24 15:24] VITALS: BP 155/82
[2016-07-24 19:26] VITALS: BP 152/91
[2016-07-24] MEDS: QUETIAPINE 100MG TABLET PO SCH (20:12)
[2016-07-25 01:21] VITALS: BP 122/80
[2016-07-25] MEDS: HEPARIN 5,000 UNITS/ML, 1ML SQ SCH ×3 (04:00→20:00)
[2016-07-25] MEDS: CEFAZOLIN PMX 2GM/50ML 50 ML IV SCH ×3 (04:07→20:23)
[2016-07-25 07:27] VITALS: BP 145/84
[2016-07-25] MEDS: POTASSIUM CHLORIDE 20 MEQ PACKET PO SCH (08:00)
[2016-07-25] MEDS: HYDROCHLOROTHIAZIDE 25 MG TABLET PO SCH ×2 (09:00→12:14)
[2016-07-25] MEDS: SENNA/DOCUSATE TABLET PO SCH (09:00)
[2016-07-25] MEDS: LOSARTAN 50MG TABLET PO SCH (09:18)
[2016-07-25 12:38] VITALS: BP 158/92
[2016-07-25 19:50] VITALS: BP 149/96
[2016-07-25] MEDS: QUETIAPINE 100MG TABLET PO SCH (20:29)
[2016-07-26] MEDS: HEPARIN 5,000 UNITS/ML, 1ML SQ SCH ×3 (04:00→19:53)
[2016-07-26] MEDS: CEFAZOLIN PMX 2GM/50ML 50 ML IV SCH ×3 (04:11→19:52)
[2016-07-26 05:32] VITALS: BP 133/89
[2016-07-26 07:22] VITALS: BP 123/79
[2016-07-26] MEDS: SENNA/DOCUSATE TABLET PO SCH (07:56)
[2016-07-26] MEDS: POTASSIUM CHLORIDE 20 MEQ PACKET PO SCH (08:00)
[2016-07-26] MEDS: HYDROCHLOROTHIAZIDE 25 MG TABLET PO SCH (08:24)
[2016-07-26] MEDS: LOSARTAN 50MG TABLET PO SCH (08:24)
[2016-07-26 13:23] VITALS: BP 143/89
[2016-07-26 20:22] VITALS: BP 152/100
[2016-07-26] MEDS: QUETIAPINE 100MG TABLET PO SCH (20:47)
[2016-07-27 03:41] VITALS: BP 118/67
[2016-07-27] MEDS: CEFAZOLIN PMX 2GM/50ML 50 ML IV SCH ×3 (03:50→21:47)
[2016-07-27] MEDS: HEPARIN 5,000 UNITS/ML, 1ML SQ SCH ×3 (03:50→20:00)
[2016-07-27] MEDS: POTASSIUM CHLORIDE 20 MEQ PACKET PO SCH (08:00)
[2016-07-27 08:05] VITALS: BP 125/85
[2016-07-27] MEDS: HYDROCHLOROTHIAZIDE 25 MG TABLET PO SCH (08:10)
[2016-07-27] MEDS: SENNA/DOCUSATE TABLET PO SCH (08:10)
[2016-07-27] MEDS: LOSARTAN 50MG TABLET PO SCH (08:10)
[2016-07-27 15:52] VITALS: BP_SYST 153; BP_SYST 164; BP_DIAS 91; BP_DIAS 98
[2016-07-27 19:21] VITALS: BP 172/109
[2016-07-27 20:30] VITALS: BP 146/74
[2016-07-27] MEDS: QUETIAPINE 100MG TABLET PO SCH (22:38)
[2016-07-28 00:38] VITALS: BP 115/65
[2016-07-28] MEDS: HEPARIN 5,000 UNITS/ML, 1ML SQ SCH ×3 (04:00→20:00)
[2016-07-28] MEDS: CEFAZOLIN PMX 2GM/50ML 50 ML IV SCH ×3 (05:04→21:23)
[2016-07-28] MEDS: LOSARTAN 50MG TABLET PO SCH (07:52)
[2016-07-28] MEDS: SENNA/DOCUSATE TABLET PO SCH (07:52)
[2016-07-28] MEDS: POTASSIUM CHLORIDE 20 MEQ PACKET PO SCH (07:52)
[2016-07-28] MEDS: HYDROCHLOROTHIAZIDE 25 MG TABLET PO SCH (07:52)
[2016-07-28 08:35] VITALS: BP 145/92
[2016-07-28 15:05] VITALS: BP 151/98
[2016-07-28 18:45] VITALS: BP 132/84
[2016-07-28 19:20] VITALS: BP 149/82
[2016-07-28] MEDS: QUETIAPINE 100MG TABLET PO SCH (21:23)
[2016-07-29 01:04] VITALS: BP 118/75
[2016-07-29 01:11] VITALS: BP 139/69
[2016-07-29] MEDS: HEPARIN 5,000 UNITS/ML, 1ML SQ SCH ×3 (04:00→20:00)
[2016-07-29] MEDS: CEFAZOLIN PMX 2GM/50ML 50 ML IV SCH ×3 (05:21→21:10)
[2016-07-29 09:10] VITALS: BP 159/108
[2016-07-29] MEDS: POTASSIUM CHLORIDE 20 MEQ PACKET PO SCH (09:55)
[2016-07-29] MEDS: HYDROCHLOROTHIAZIDE 25 MG TABLET PO SCH (09:55)
[2016-07-29] MEDS: LOSARTAN 50MG TABLET PO SCH (09:55)
[2016-07-29] MEDS: SENNA/DOCUSATE TABLET PO SCH (09:55)
[2016-07-29 13:35] VITALS: BP 159/95
[2016-07-29 18:31] VITALS: BP 172/82
[2016-07-29] MEDS: QUETIAPINE 100MG TABLET PO SCH (21:09)
[2016-07-30 00:51] VITALS: BP 111/72
[2016-07-30] MEDS: HEPARIN 5,000 UNITS/ML, 1ML SQ SCH ×3 (04:00→20:00)
[2016-07-30] MEDS: CEFAZOLIN PMX 2GM/50ML 50 ML IV SCH ×3 (05:04→21:12)
[2016-07-30 08:05] VITALS: BP 170/108
[2016-07-30] MEDS: LOSARTAN 50MG TABLET PO SCH (08:22)
[2016-07-30] MEDS: POTASSIUM CHLORIDE 20 MEQ PACKET PO SCH (08:22)
[2016-07-30] MEDS: SENNA/DOCUSATE TABLET PO SCH (08:23)
[2016-07-30] MEDS: HYDROCHLOROTHIAZIDE 25 MG TABLET PO SCH (08:23)
[2016-07-30 11:14] VITALS: BP 187/108
[2016-07-30] MEDS: ENALAPRILAT 1.25 MG/ML, 2ML IVPush PRN ×2 (11:27→18:06)
[2016-07-30 13:15] VITALS: BP 184/120
[2016-07-30] MEDS: AMLODIPINE 5 MG TABLET PO SCH (15:38)
[2016-07-30 17:53] VITALS: BP 174/110
[2016-07-30 20:00] VITALS: BP 163/99
[2016-07-30] MEDS: QUETIAPINE 100MG TABLET PO SCH (21:12)
[2016-07-31 03:01] VITALS: BP 126/86
[2016-07-31] MEDS: HEPARIN 5,000 UNITS/ML, 1ML SQ SCH ×3 (04:00→20:00)
[2016-07-31] MEDS: CEFAZOLIN PMX 2GM/50ML 50 ML IV SCH ×3 (04:59→21:12)
[2016-07-31 05:50] LABS: ASPARTATE AMINO TRANSFERASE 18 U/L (15-37); BLOOD UREA NITROGEN 25 mg/dL (7-18)
[2016-07-31 07:59] VITALS: BP 137/94
[2016-07-31] MEDS: POTASSIUM CHLORIDE 20 MEQ PACKET PO SCH (08:59)
[2016-07-31] MEDS: SENNA/DOCUSATE TABLET PO SCH (09:00)
[2016-07-31] MEDS: LOSARTAN 50MG TABLET PO SCH (09:00)
[2016-07-31] MEDS: HYDROCHLOROTHIAZIDE 25 MG TABLET PO SCH (09:01)
[2016-07-31] MEDS: AMLODIPINE 5 MG TABLET PO SCH (09:01)
[2016-07-31 13:58] VITALS: BP 140/79
[2016-07-31 19:35] VITALS: BP 145/91
[2016-07-31] MEDS: QUETIAPINE 100MG TABLET PO SCH (21:13)
[2016-08-01] MEDS: HEPARIN 5,000 UNITS/ML, 1ML SQ SCH ×3 (04:00→21:24)
[2016-08-01] MEDS: CEFAZOLIN PMX 2GM/50ML 50 ML IV SCH ×3 (05:01→21:23)
[2016-08-01 05:06] VITALS: BP 110/70
[2016-08-01 07:59] VITALS: BP 117/78
[2016-08-01] MEDS: SENNA/DOCUSATE TABLET PO SCH (09:00)
[2016-08-01] MEDS: POTASSIUM CHLORIDE 20 MEQ PACKET PO SCH (10:03)
[2016-08-01] MEDS: HYDROCHLOROTHIAZIDE 25 MG TABLET PO SCH (10:04)
[2016-08-01] MEDS: LOSARTAN 50MG TABLET PO SCH (10:04)
[2016-08-01] MEDS: AMLODIPINE 5 MG TABLET PO SCH (10:05)
[2016-08-01 13:59] VITALS: BP 126/80
[2016-08-01] MEDS: QUETIAPINE 100MG TABLET PO SCH (21:24)
[2016-08-02] MEDS: HEPARIN 5,000 UNITS/ML, 1ML SQ SCH ×2 (05:20→12:00)
[2016-08-02] MEDS: CEFAZOLIN PMX 2GM/50ML 50 ML IV SCH ×2 (05:22→13:21)
[2016-08-02 06:55] VITALS: BP 110/74
[2016-08-02] MEDS: POTASSIUM CHLORIDE 20 MEQ PACKET PO SCH (08:00)
[2016-08-02] MEDS: SENNA/DOCUSATE TABLET PO SCH (09:00)
[2016-08-02] MEDS: LOSARTAN 50MG TABLET PO SCH (09:41)
[2016-08-02] MEDS: AMLODIPINE 5 MG TABLET PO SCH (09:41)
[2016-08-02] MEDS: HYDROCHLOROTHIAZIDE 25 MG TABLET PO SCH (09:41)
[2016-08-02 15:59] VITALS: BP 132/84
[2016-08-02] MEDS ORDERED: POTA20TA14 PO (17:06)
[2016-08-02] MEDS ORDERED: QUET100T PO ×2 (17:06→18:14)
[2016-08-02] MEDS ORDERED: AMLO5TAB2 PO ×2 (17:06→18:14)
[2016-08-02] MEDS ORDERED: HYDR25TA6 PO ×2 (17:06→18:14)
[2016-08-02] MEDS ORDERED: LOSA50TA2 PO ×2 (17:06→18:14)
== END 2016-08-02 17:30 | disposition home or self-care (01) | DRG 871 ==
LOC: ED 19:00 → EDIP 20:30 → 4WST 21:45 → 3NE 06-29 13:10
PROVIDERS: ADMIT Internal Medicine; ATTEND Internal Medicine
PROC: 0T9B70Z Drainage of Bladder with Drainage Device, Via Natural or Artificial Opening (ICD-10-PCS; 2016-06-18)
PROC: 0B9G3ZX Drainage of Left Upper Lung Lobe, Percutaneous Approach, Diagnostic (ICD-10-PCS; principal; 2016-06-20)
PROC: 02HV33Z Insertion of Infusion Device into Superior Vena Cava, Percutaneous Approach (ICD-10-PCS; 2016-06-27)
PROC: B5181ZA Fluoroscopy of Superior Vena Cava using Low Osmolar Contrast, Guidance (ICD-10-PCS; 2016-06-27)
PROC: B548ZZA Ultrasonography of Superior Vena Cava, Guidance (ICD-10-PCS; 2016-06-27)
DX: A41.01 Sepsis due to Methicillin susceptible Staphylococcus aureus (principal); I33.0 Acute and subacute infective endocarditis; J15.211 Pneumonia due to Methicillin susceptible Staphylococcus aureus; N39.0 Urinary tract infection, site not specified; E44.0 Moderate protein-calorie malnutrition; E87.1 Hypo-osmolality and hyponatremia; R45.851 Suicidal ideations; F15.20 Other stimulant dependence, uncomplicated; M48.54XA Collapsed vertebra, not elsewhere classified, thoracic region, initial encounter for fracture; M51.16 Intervertebral disc disorders with radiculopathy, lumbar region; M48.06 Spinal stenosis, lumbar region; D63.8 Anemia in other chronic diseases classified elsewhere; F32.9 Major depressive disorder, single episode, unspecified; E87.6 Hypokalemia; R09.02 Hypoxemia; I10 Essential (primary) hypertension; R91.8 Other nonspecific abnormal finding of lung field; Z87.11 Personal history of peptic ulcer disease; Z90.49 Acquired absence of other specified parts of digestive tract; Z72.0 Tobacco use; Z91.5 Personal history of self-harm; Z68.35 Body mass index [BMI] 35.0-35.9, adult; Z90.89 Acquired absence of other organs; Z71.6 Tobacco abuse counseling; Z71.51 Drug abuse counseling and surveillance of drug abuser; Z82.5 Family history of asthma and other chronic lower respiratory diseases; Z88.5 Allergy status to narcotic agent
CPT/HCPCS: 32405; 36415; 36569; 71010; 71020; 71275; 72158; 76700; 76937; 77001; 77012; 80048; 80053; 80061; 80074; 80307; 81001; 82378; 82550; 82607; 83036; 83516; 83605; 83735; 84145; 84439; 84443; 84484; 85025; 85379; 85520; 85610; 85651; 85730; 86038; 86140; 86160; 86225; 86235; 86255; 86256; 86376; 86431; 86480; 86592; 86618; 86635; 86703; 87040; 87070; 87075; 87077; 87086; 87147; 87176; 87186; 87205; 87899; 88172; 88173; 93005; 93306; 94640; 96361; 96365; 96367; 96375; 99156; 99157; J0456; J0690; J0696; J1170; J1644; J1885; J2250; J2405; J2543; J3010; J3370; J7620; Q9967; C1751; G0435; J2060; J2310; J7030; J7050

== ENCOUNTER 2017-06-19 00:39 | Emergency (ER) | payer MEDICAID ==
[~2017-06-19] VITALS: Ht 167.6 cm; Wt 106.5 kg
[~2017-06-19 00:39] MED LIST: AMLO5TAB2 PO; HYDR25TA6 PO; LOSA50TA2 PO; POTA20TA14 PO; QUET100T PO
[2017-06-19 00:47] VITALS: BP 171/120
== END 2017-06-19 01:44 | disposition left against medical advice (07) ==
LOC: ED 01:39
DX: R21 Rash and other nonspecific skin eruption (principal)
CPT/HCPCS: 99281

== ENCOUNTER 2017-07-12 16:58 | Emergency (ER) | payer MEDICAID ==
[~2017-07-12] VITALS: Ht 167.6 cm; Wt 107.9 kg
[2017-07-12 17:05] VITALS: BP 183/126
== END 2017-07-12 18:41 ==
LOC: ED 18:20
DX: S39.012A Strain of muscle, fascia and tendon of lower back, initial encounter (principal); M47.896 Other spondylosis, lumbar region; I10 Essential (primary) hypertension; M54.42 Lumbago with sciatica, left side; V19.9XXA Pedal cyclist (driver) (passenger) injured in unspecified traffic accident, initial encounter; Y93.55 Activity, bike riding; Y92.89 Other specified places as the place of occurrence of the external cause; Y99.8 Other external cause status
CPT/HCPCS: 72110; 99284

== ENCOUNTER 2020-09-07 18:00 | Emergency (ER) | payer MEDICAID ==
[~2020-09-07] VITALS: Ht 167.6 cm; Wt 109.1 kg
[~2020-09-07 18:00] MED LIST changes: +AMLO-150 PO; -AMLO5TAB2 PO
[2020-09-07 18:13] VITALS: BP 184/121
[2020-09-07] MEDS ORDERED: LISINOPRIL 10 MG TABLET ONE (19:28)
[2020-09-07] MEDS ORDERED: LISINOPRIL 10 MG TABLET PO ONE (19:30)
== END 2020-09-07 20:06 | disposition home or self-care (01) ==
LOC: ED 18:26
DX: L03.116 Cellulitis of left lower limb (principal); I10 Essential (primary) hypertension; Z76.0 Encounter for issue of repeat prescription; L97.529 Non-pressure chronic ulcer of other part of left foot with unspecified severity
CPT/HCPCS: 99283

== ENCOUNTER 2020-11-25 19:51 | Inpatient (IN) | payer MEDICAID ==
[~2020-11-25] VITALS: Ht 177.8 cm; Wt 98.9 kg
[~2020-11-25 19:51] MED LIST changes: -QUET100T PO; +QUET100T2 PO
--- NOTE | 2020-11-25 20:32 | NUR ---
PATIENT IS NOT TOLERATING NASAL CANNULA AT 6L, CALLED RT. RT ARRIVED SWITCHED PATIENT TO 10L HIGH FLOW NASAL CANNULA. UPDATED MD REGARDING PATIENT'S PLAN OF CARE. PT TOLERATING INTERVENTIONS WELL.
--- NOTE | 2020-11-25 20:40 | NUR ---
RT AT BEDSIDE, PATIENT IS NOT RECOVERING ON HIGH FLOW NASAL CANNULA 10L. PATIENT PLACED ON MD KRISTINE AWARE.
[2020-11-25] MEDS ORDERED: DOXYCYCLINE 100MG TABLET ONE (20:55)
[2020-11-25] MEDS ORDERED: DEXAMETHASONE 4 MG/ML, 1ML ONE (20:55)
[2020-11-25] MEDS ORDERED: DOXYCYCLINE 100MG TABLET PO ONE (21:00)
[2020-11-25] MEDS ORDERED: DEXAMETHASONE 4 MG/ML, 1ML IV ONE (21:00)
[2020-11-25] MEDS ORDERED: CEFTRIAXONE 1,000 MG in DEXTROSE 5% 50 ML IVPB ONE (21:00)
--- NOTE | 2020-11-25 21:00 | NUR ---
PATIENT ABLE TO TURN SELF FOR COMFORT. NO NOTED ADDITIONAL NEEDS. PATIENT ON MONITOR. VSS. CALL LIGHT WITHIN REACH. BED IN LOWEST LOCKED POSITION. WILL CONTINUE TO MONITOR.
[2020-11-25 21:03] LABS: BASOPHILS % (AUTO) 0 % (0-1); EOSINOPHILS % (AUTO) 0 % (1-7); LYMPHOCYTES % (AUTO) 15 % (22-44); MEAN CORPUSCULAR HEMOGLOBIN 29.2 pg (27.5-34.5); MEAN CORPUSCULAR HGB CONC 35.2 g/dL (33.2-36.2); MEAN PLATELET VOLUME 9.5 fL (7.4-10.4); MONOCYTES % (AUTO) 8 % (2-9); NEUTROPHILS % (AUTO) 76 % (42-75); PLATELET COUNT 191 x10^3/uL (130-400); RED BLOOD COUNT 5.45 x10^6/uL (4.38-5.82); RED CELL DISTRIBUTION WIDTH 13.7 % (9.4-14.8)
--- NOTE | 2020-11-25 21:08 | NUR ---
PATIENT UPDATED ON PLAN OF CARE. TOLERATING INTERVENTIONS WELL. PATIENT VERBALIZED UNDERSTANDING OF SELF CARE AND PLAN OF CARE. VSS. OPTIFLOW IS BEING TOLERATED WELL. MEDICATIONS GIVEN PER MAR. WILL CONTINUE TO MONITOR.
[2020-11-25 21:13] LABS: ALBUMIN 2.2 g/dL (3.4-5.0); ANION GAP 7 mmol/L (5-15); CALCIUM 9.1 mg/dL (8.5-10.1); CHLORIDE 98 mmol/L (98-107); CREATININE 1.26 mg/dL (0.7-1.3)
[2020-11-25 21:16] LABS: PROTIME 10.5 Seconds (9.6-11.5)
[2020-11-25 21:23] LABS: ALANINE AMINOTRANSFERASE 59 U/L (12-78); ALKALINE PHOSPHATASE 75 U/L (45-117); BILIRUBIN,TOTAL 1.1 mg/dL (0.2-1.0); TOTAL PROTEIN 6.9 g/dL (6.4-8.2)
[2020-11-25] MEDS ORDERED: LABETALOL 5MG/ML, 20ML IVPush PRN (21:30)
[2020-11-25] MEDS ORDERED: REMDESIVIR 100 MG IV SCH (21:30)
[2020-11-25] MEDS ORDERED: PHARMACY MAY ADJ FOR RENAL FX MC PRN (21:30)
[2020-11-25] MEDS ORDERED: POLYETHYLENE GLYCOL 17 GM PACKET PO PRN (21:30)
[2020-11-25] MEDS ORDERED: ONDANSETRON 2MG/ML, 2ML IVPush PRN (21:30)
[2020-11-25] MEDS ORDERED: ENOXAPARIN 40 MG/0.4 ML SQ SCH (21:38)
[2020-11-25] MEDS ORDERED: FAMOTIDINE 20 MG TABLET PO SCH (21:38)
[2020-11-25] MEDS ORDERED: MELATONIN 5 MG TABLET PO PRN (21:38)
[2020-11-25] MEDS: DEXAMETHASONE 4 MG/ML, 1ML IVPush SCH (21:39)
[2020-11-25] MEDS: QUETIAPINE 100MG TABLET PO SCH (22:00)
[2020-11-25] MEDS ORDERED: REMDESIVIR 200 MG in SODIUM CHLORIDE 0.9% 250 ML IVPB ONE (22:00)
--- NOTE | 2020-11-25 22:00 | NUR ---
SPOKE WITH MD WILKINS. PATIENT HAS ELEVATED LIVER ENZYMES AND POSITIVE TEST WAS 11 DAYS AGO TODAY. NO REMDESIVIR WILL BE GIVEN TO THIS PATIENT. PHARMACY AWARE. MEDICATION SENT BACK TO PHARMACY.
--- NOTE | 2020-11-25 23:28 | NUR ---
PATIENT RESTING IN BED. NO NOTED NEEDS AT THIS TIME. WILL CONTINUE TO MONITOR.
--- NOTE | 2020-11-25 23:53 | NUR ---
PATIENT RESTING IN BED, NO NOTED ADDITIONAL NEEDS AT THIS TIME. VSS. WILL CONTINUE TO MONITOR.
[2020-11-26] MEDS ORDERED: ENOXAPARIN 40 MG/0.4 ML ONE (00:20)
[2020-11-26] MEDS ORDERED: ASCORBIC ACID 500 MG TABLET ONE ×3 (00:20→20:27)
[2020-11-26] MEDS ORDERED: FAMOTIDINE 20 MG TABLET ONE (00:20)
[2020-11-26] MEDS: ASCORBIC ACID 500 MG TABLET PO SCH ×3 (00:24→20:49)
--- NOTE | 2020-11-26 00:52 | NUR ---
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 PATIENT UPDATED ON PLAN OF CARE. DENIES ANY ADDITIONAL NEEDS AT THIS TIME. VSS. NO ACUTE DISTRESS NOTED AT THIS TIME. PATIENT VERBALIZED UNDERSTANDING OF FUTURE MEDICATIONS. PATIENT CHANGED OUT OF GOWN, LINEN CHANGED. PATIENT TOLERATED WELL, ABLE TO SUPPORT WEIGHT FOR GOWN CHANGE.
--- NOTE | 2020-11-26 01:31 | NUR ---
PATIENT RESTING IN BED. NO NOTED NEEDS AT THIS TIME. TOLERATING INTERVENTIONS WELL. VSS. NO APPARENT ACUTE DISTRESS. WILL CONTINUE TO MONITOR.
--- NOTE | 2020-11-26 02:30 | NUR ---
PATIENT RESTING IN BED, VSS. NO NOTED NEEDS AT THIS TIME. WILL CONTINUE TO MONITOR.
--- NOTE | 2020-11-26 03:30 | NUR ---
PATIENT MOVED TO ICU BED. ABLE TO STAND WITHOUT ASSISTANCE. TOLERATED WELL. LINENS CHANGED. PATIENT'S GOWN WAS WET, FORHEAD HAS SWEAT PRESENT. PATIENT AIDED WITH BED BATH. NO TEMP PRESENT DURING THIS TIME. VSS. WILL CONTINUE TO MONITOR.
--- NOTE | 2020-11-26 04:30 | NUR ---
PATIENT HIT CALL LIGHT ASKING FOR URINAL. USED URINAL WELL WITHOUT ASSISTANCE. 350ML OF DARK TRISH URINE FROM PATIENT.
[2020-11-26] MEDS ORDERED: DEXAMETHASONE 4 MG/ML, 1ML ONE ×2 (05:10→08:58)
[2020-11-26] MEDS: DEXAMETHASONE 4 MG/ML, 1ML IVPush SCH ×2 (05:19→09:21)
--- NOTE | 2020-11-26 05:23 | NUR ---
PATIENT'S LABS COLLECTED AND SENT. MEDICATION'S GIVEN. SNACKS PER PATIENT REQUEST AND DIET ORDER GIVEN. PATIENT UPDATED ON PLAN OF CARE. PATIENT'S VSS. NO NOTED ADDITIONAL NEEDS AT THIS TIME. WILL CONTINUE TO MONITOR.
[2020-11-26 05:38] LABS: BASOPHILS % (AUTO) 1 % (0-1); EOSINOPHILS % (AUTO) 0 % (1-7); LYMPHOCYTES % (AUTO) 16 % (22-44); MEAN CORPUSCULAR HEMOGLOBIN 29.4 pg (27.5-34.5); MEAN CORPUSCULAR HGB CONC 35.1 g/dL (33.2-36.2); MEAN PLATELET VOLUME 9.8 fL (7.4-10.4); MONOCYTES % (AUTO) 5 % (2-9); NEUTROPHILS % (AUTO) 78 % (42-75); PLATELET COUNT 207 x10^3/uL (130-400); RED BLOOD COUNT 5.75 x10^6/uL (4.38-5.82)
[2020-11-26 05:42] LABS: ANION GAP 7 mmol/L (5-15); CALCIUM 9.8 mg/dL (8.5-10.1); CHLORIDE 98 mmol/L (98-107)
--- NOTE | 2020-11-26 06:33 | NUR ---
NO NOTED ADDITIONAL NEEDS. PATIENT ON MONITOR. VSS. CALL LIGHT WITHIN REACH. BED IN LOWEST LOCKED POSITION. WILL CONTINUE TO MONITOR.
--- NOTE | 2020-11-26 06:55 | NUR ---
REPORT GIVEN TO ONCOMING RN.
--- NOTE | 2020-11-26 07:09 | NUR ---
PT ASLEEP IN BED, OPTIFLOW IN PLACE MAINTAINING PT'S SPO2 IN MID 90'S. NAD NOTED AT THIS TIME. SIDE RAIL UP, CALL LIGHT IN REACH. AWAITING CCU BED ASSIGNMENT.
[2020-11-26] MEDS ORDERED: THIAMINE 100MG TABLET ONE (08:09)
[2020-11-26] MEDS ORDERED: ZINC SULFATE 220 MG CAPSULE ONE (08:10)
[2020-11-26] MEDS ORDERED: AMLODIPINE 10 MG TAB ONE (08:10)
[2020-11-26] MEDS ORDERED: AZITHROMYCIN 250 MG TABLET ONE (08:10)
[2020-11-26] MEDS ORDERED: CHOLECALCIFEROL 5,000u TAB ONE ×2 (08:10→08:58)
[2020-11-26] MEDS ORDERED: RIVAROXABAN 20 MG TABLET ONE (08:11)
--- NOTE | 2020-11-26 08:17 | NUR ---
WAITING FOR MEAL TRAY FOR PO MED ADMINISTRATION.
[2020-11-26] MEDS: THIAMINE 100MG TABLET PO SCH (08:39)
[2020-11-26] MEDS: ZINC SULFATE 220 MG CAPSULE PO SCH (08:39)
[2020-11-26] MEDS: RIVAROXABAN 20 MG TABLET PO SCH (08:40)
[2020-11-26 08:45] LABS: ALANINE AMINOTRANSFERASE 61 U/L (12-78); ALBUMIN 2.2 g/dL (3.4-5.0); ANION GAP 9 mmol/L (5-15); CALCIUM 9.8 mg/dL (8.5-10.1); CHLORIDE 101 mmol/L (98-107); CREATININE 1.42 mg/dL (0.7-1.3)
[2020-11-26] MEDS: AMLODIPINE 10 MG TAB PO SCH (08:45)
[2020-11-26] MEDS: AZITHROMYCIN 250 MG TABLET PO SCH (08:45)
[2020-11-26 08:46] LABS: ALKALINE PHOSPHATASE 77 U/L (45-117); BILIRUBIN,TOTAL 0.8 mg/dL (0.2-1.0); TOTAL PROTEIN 7.3 g/dL (6.4-8.2)
[2020-11-26] MEDS ORDERED: REMDESIVIR 100 MG IV SCH (09:00)
[2020-11-26] MEDS ORDERED: AMLODIPINE 5 MG TABLET PO SCH (09:00)
[2020-11-26] MEDS: CHOLECALCIFEROL 5,000u TAB PO SCH (09:20)
--- NOTE | 2020-11-26 09:26 | NUR ---
MEAL TRAY GIVEN, MEDS ADMINISTERED PER EMAR. NAD NOTED IN PT AT THIS TIME. PT DESATURATION INTO 70'S ON RA WHILE OPTIFLOW REMOVED PT WAS SITTING IN BED EATING. RN ENCOURAGES PT TO KEEP OPTIFLOW IN NOSE.
--- NOTE | 2020-11-26 10:20 | NUR ---
PT RESTING IN BED WATCHING TELEVISION. NAD NOTED AT THIS TIME.
[2020-11-26] MEDS ORDERED: POTASSIUM CHLORIDE 20 MEQ TAB.ER.PRT PO ONE (11:30)
[2020-11-26] MEDS ORDERED: POTASSIUM CHLORIDE 20 MEQ TAB.ER.PRT ONE (11:33)
--- NOTE | 2020-11-26 11:36 | NUR ---
MEAL TRAY ORDERED. PT USED URINAL. DENIES ANY NEEDS AT THIS TIME.
--- NOTE | 2020-11-26 12:03 | NUR ---
BLANKETS APPLIED TO PT. INCENTIVE SPIROMETER USE DISCUSSED. PT REMAINS ON OPTIFLOW. NAD NOTED AT THIS TIME. PT DENIES PAIN OR FURTHER NEEDS.
--- NOTE | 2020-11-26 13:03 | NUR ---
PT RESTING IN BED, AWAITING MEAL TRAY. NAD NOTED AT THIS TIME. HOB TO LEVEL OF COMFORT. RN HELPED PT REPOSITION HIMSELF IN BED.
--- NOTE | 2020-11-26 14:18 | NUR ---
MEAL TRAY GIVEN. MEAT CUT BY RN FOR PT. FLUIDS PROVIDED. HOB ELEVATED FOR PT SAFETY. CALL LIGHT IN REACH.
[2020-11-26] MEDS ORDERED: REMDESIVIR 200 MG in SODIUM CHLORIDE 0.9% 250 ML IVPB ONE (15:00)
--- NOTE | 2020-11-26 15:20 | NUR ---
BEDSIDE REPORT FROM MARCUS OAKLEY.
--- NOTE | 2020-11-26 15:28 | NUR ---
REPORT TO CELE CHAMBERS.
[2020-11-26] MEDS ORDERED: FUROSEMIDE 20 MG/2 ML ONE (15:53)
--- NOTE | 2020-11-26 16:30 | NUR ---
PT SLEEPING, EASILY AWAKENS. NO NEEDS AT THIS TIME. URINAL WITHIN REACH.
[2020-11-26] MEDS ORDERED: FUROSEMIDE 20 MG/2 ML IV SCH (17:00)
--- NOTE | 2020-11-26 17:51 | NUR ---
PT FOUND WITH OXYGEN OFF. RA SATS 77%. PT PLACED BACK ON OPTI SKIP, NOW 85%. RT CALLED.
--- NOTE | 2020-11-26 19:13 | NUR ---
REPORT TO TATY OAKLEY
--- NOTE | 2020-11-26 19:15 | NUR ---
REPORT RECEIVED, POC DISCUSSED, CARE ASSUMED. PT RESTING WITH OPTIFLO IN PLACE, HAS TO BE REMINDED TO KEEP O2 IN PLACE, OTHERWISE PT'S SATS DECREASE DOWN INTO THE 70'-80'.
[2020-11-26] MEDS ORDERED: QUETIAPINE 100MG TABLET ONE (20:27)
[2020-11-26] MEDS: QUETIAPINE 100MG TABLET PO SCH (20:49)
--- NOTE | 2020-11-26 21:30 | NUR ---
PT SITTING ON SIDE OF BED, HAD RECEIVED NIGHTLY SEROQUEL AND VIT C. PT SPEECH SLURRED AND ATTEMPTING TO GET PT TO LAY DOWN, PT BECAME UNCOOPERATIVE. PT CONTINUALLY TAKES O2 OFF AND DESATS. FREQUENT REMINDING OF IMPORTANCE OF O2. GOT PT TO LAY DOWN BUT PT RESTLESS AND NOT ABLE TO RELAX. PT STATED HE HAS TAKEN SEROQUEL IN THE PAST.
[2020-11-26] MEDS ORDERED: REMDESIVIR 100 MG in SODIUM CHLORIDE 0.9% 250 ML IVPB SCH (23:00)
--- NOTE | 2020-11-26 23:47 | NUR ---
RT CALLED TO EVALUATE PT. PT CONTINUES TO TAKE OPTIFLO OFF AND DESATS INTO 70'S. CAN EASILY BE REMINDED BUT WILL NOT KEEP IT IN PLACE. RT STATES PT WILL NOT TOLERATE BIPAP AND FACE MASK WILL NOT MAINTAIN O2 SATS. WILL CONTINUE TO MONITOR PT AND REMIND TO KEEP O2 IN PLACE.
--- NOTE | 2020-11-27 01:21 | NUR ---
PT CONTINUES TO TAKE O2 OFF AND HAS TO BE REMINDED FREQUENTLY. PT UNCOOPERATIVE WITH CARE, THREW OBJECTS AT RT WHEN SHE INFORMED HIM ABOUT LEAVING O2 ON. RT AND THIS RN HAVE EXPLAINED TO PT THAT IF HE CONTINUES TO TAKE O2 OFF THAT HE CAN END UP BEING VENTILATED. PT STATES DOES NOT WANT THAT BUT REMAINS UNCOOPERATIVE. HAS REMOVED BP CUFF AND REFUSES TO HAVE IT PUT BACK ON.
[2020-11-27 04:15] LABS: BASOPHILS % (AUTO) 1 % (0-1); EOSINOPHILS % (AUTO) 0 % (1-7); LYMPHOCYTES % (AUTO) 7 % (22-44); MEAN CORPUSCULAR HEMOGLOBIN 29.3 pg (27.5-34.5); MEAN CORPUSCULAR HGB CONC 35.1 g/dL (33.2-36.2); MEAN PLATELET VOLUME 9.7 fL (7.4-10.4); MONOCYTES % (AUTO) 5 % (2-9); NEUTROPHILS % (AUTO) 88 % (42-75); PLATELET COUNT 224 x10^3/uL (130-400); RED BLOOD COUNT 5.45 x10^6/uL (4.38-5.82); RED CELL DISTRIBUTION WIDTH 13.7 % (9.4-14.8)
[2020-11-27 04:24] LABS: ALANINE AMINOTRANSFERASE 54 U/L (12-78); ALBUMIN 2.2 g/dL (3.4-5.0); ANION GAP 9 mmol/L (5-15); CALCIUM 9.6 mg/dL (8.5-10.1); CHLORIDE 102 mmol/L (98-107)
[2020-11-27 04:26] LABS: ALKALINE PHOSPHATASE 74 U/L (45-117); BILIRUBIN,TOTAL 0.8 mg/dL (0.2-1.0); TOTAL PROTEIN 6.9 g/dL (6.4-8.2)
--- NOTE | 2020-11-27 04:41 | NUR ---
HAD TO HAVE PT PUT O2 BACK ON AGAIN. PT GOT AGGRAVATED AND STATED "JUST LET ME ". PT DID PUT O2 BACK ON AT THIS TIME. BP CUFF IS OFF AGAIN AND PT REFUSING TO HAVE IT PUT BACK ON. PT CONTINUES TO BE UNCOOPERATIVE WITH CARE AND HIS OWN WELL BEING.
[2020-11-27] MEDS: RIVAROXABAN 20 MG TABLET PO SCH (05:37)
[2020-11-27] MEDS: INSULIN LISPRO 100 UNITS/ML, PEN SQ-INSULIN SCH ×4 (07:30→20:37)
[2020-11-27] MEDS ORDERED: DEXAMETHASONE 4 MG/ML, 1ML ONE (09:40)
[2020-11-27] MEDS ORDERED: FUROSEMIDE 20 MG/2 ML ONE (09:41)
[2020-11-27] MEDS ORDERED: INSULIN LISPRO SINGLE DOSE, ER SQ-INSULIN ONE (09:41)
[2020-11-27] MEDS ORDERED: AMLODIPINE 10 MG TAB ONE (09:41)
[2020-11-27] MEDS ORDERED: CHOLECALCIFEROL 5,000u TAB ONE (09:41)
[2020-11-27] MEDS ORDERED: ASCORBIC ACID 500 MG TABLET ONE ×2 (09:41→20:18)
[2020-11-27] MEDS ORDERED: AZITHROMYCIN 250 MG TABLET ONE (09:41)
[2020-11-27] MEDS ORDERED: ZINC SULFATE 220 MG CAPSULE ONE (09:41)
[2020-11-27] MEDS ORDERED: THIAMINE 100MG TABLET ONE (09:45)
[2020-11-27] MEDS: ASCORBIC ACID 500 MG TABLET PO SCH ×2 (10:07→20:24)
[2020-11-27] MEDS: AMLODIPINE 10 MG TAB PO SCH (10:07)
[2020-11-27] MEDS: ZINC SULFATE 220 MG CAPSULE PO SCH (10:07)
[2020-11-27] MEDS: AZITHROMYCIN 250 MG TABLET PO SCH (10:07)
[2020-11-27] MEDS: THIAMINE 100MG TABLET PO SCH (10:07)
[2020-11-27] MEDS: CHOLECALCIFEROL 5,000u TAB PO SCH (10:08)
[2020-11-27] MEDS: DEXAMETHASONE 4 MG/ML, 1ML IVPush SCH (10:14)
[2020-11-27] MEDS: FUROSEMIDE 20 MG/2 ML IV SCH (10:14)
[2020-11-27 10:30] VITALS: BP 132/83
[2020-11-27 11:30] VITALS: BP 121/76
[2020-11-27 12:30] VITALS: BP 117/48
[2020-11-27 13:30] VITALS: BP 105/72
[2020-11-27] MEDS: CEFTRIAXONE 1,000 MG in DEXTROSE 5% 50 ML IVPB SCH (13:37)
[2020-11-27 14:30] VITALS: BP 98/56
[2020-11-27] MEDS: REMDESIVIR 100 MG in SODIUM CHLORIDE 0.9% 250 ML IVPB SCH (15:11)
[2020-11-27 15:30] VITALS: BP 108/66
[2020-11-27] MEDS ORDERED: QUETIAPINE 100MG TABLET ONE (20:18)
[2020-11-27] MEDS: QUETIAPINE 100MG TABLET PO SCH (20:24)
[2020-11-28] MEDS ORDERED: RIVAROXABAN 20 MG TABLET ONE (05:48)
[2020-11-28] MEDS: RIVAROXABAN 20 MG TABLET PO SCH (06:12)
[2020-11-28] MEDS: INSULIN LISPRO 100 UNITS/ML, PEN SQ-INSULIN SCH ×4 (06:15→21:09)
[2020-11-28 06:34] LABS: BASOPHILS % (AUTO) 0 % (0-1); EOSINOPHILS % (AUTO) 0 % (1-7); LYMPHOCYTES % (AUTO) 6 % (22-44); MEAN CORPUSCULAR HEMOGLOBIN 28.5 pg (27.5-34.5); MEAN CORPUSCULAR HGB CONC 34.1 g/dL (33.2-36.2); MEAN PLATELET VOLUME 9.4 fL (7.4-10.4); MONOCYTES % (AUTO) 6 % (2-9); NEUTROPHILS % (AUTO) 88 % (42-75); PLATELET COUNT 290 x10^3/uL (130-400); RED BLOOD COUNT 5.45 x10^6/uL (4.38-5.82); RED CELL DISTRIBUTION WIDTH 13.9 % (9.4-14.8)
--- NOTE | 2020-11-28 07:42 | NUR ---
Pt does not always keep mask on, even after instruction w/ rationale. Spo2 in the 70s% on room air, and 86% w/ 15L nonrebreather mask & RR 28-33. SR w/ occas uniform PVC. Seems angry at times. 7up given. ordered breakfast.
--- NOTE | 2020-11-28 07:48 | NUR ---
ASSESSMENT: BEGUM =, OREINTED X4, PUPILS: 3 BRISK, CONJUGATE GAZE & FULL EYE MOVEMENT. PULSES 2+ RADS/DPs. NEG Kaylen. INSTRUCTED ON FOOT EXERCISES W/ RATIONALE. HEART TONES: S1, S2. BREATH SOUNDS: ANT. IS CLEAR, DIMINISHED, WHILE POST: LLL W/ FINE RALES IN THE BASES, OTHERWISE DIMINSHED & CLEAR. ACT BS T/O ALL QUADS. CLEAR YELLOW URINE 75CC. DRY FRQ COUGH. TACHY RR. SPO2 86% WHEN STILL & NOT TALKING. AGREES HE IS SOB SINCE HE HAS "GOT HERE". REINFORCED INSTRUCTION ON LESS TALKING, & BEDREST. INSTRUCTED OT NOTIFY ME IF SOB WORSEN, HE HAS PAIN, & WHEN HE NEEDS ANYTING. CALL LIGHT IN REACH.
[2020-11-28 07:51] LABS: ANION GAP 8 mmol/L (5-15); CALCIUM 9.6 mg/dL (8.5-10.1); CHLORIDE 102 mmol/L (98-107); CREATININE 1.52 mg/dL (0.7-1.3)
[2020-11-28] MEDS ORDERED: FUROSEMIDE 20 MG/2 ML ONE (08:10)
[2020-11-28] MEDS ORDERED: DEXAMETHASONE 4 MG/ML, 1ML ONE ×2 (08:10→09:21)
--- NOTE | 2020-11-28 08:10 | NUR ---
PT ADAMANTLY REFUSED XRAY AT [phone].
[2020-11-28] MEDS ORDERED: CHOLECALCIFEROL 5,000u TAB ONE (08:13)
[2020-11-28] MEDS ORDERED: AZITHROMYCIN 250 MG TABLET ONE (08:14)
[2020-11-28] MEDS ORDERED: ASCORBIC ACID 500 MG TABLET ONE (08:14)
[2020-11-28] MEDS ORDERED: ZINC SULFATE 220 MG CAPSULE ONE (08:14)
[2020-11-28] MEDS ORDERED: AMLODIPINE 10 MG TAB ONE (08:15)
[2020-11-28] MEDS: CHOLECALCIFEROL 5,000u TAB PO SCH (09:04)
[2020-11-28] MEDS: ASCORBIC ACID 500 MG TABLET PO SCH ×2 (09:04→21:07)
[2020-11-28] MEDS: ZINC SULFATE 220 MG CAPSULE PO SCH (09:05)
[2020-11-28] MEDS: AZITHROMYCIN 250 MG TABLET PO SCH (09:05)
[2020-11-28] MEDS: THIAMINE 100MG TABLET PO SCH (09:06)
[2020-11-28] MEDS: AMLODIPINE 10 MG TAB PO SCH (09:06)
[2020-11-28] MEDS: DEXAMETHASONE 4 MG/ML, 1ML IVPush SCH (09:07)
[2020-11-28] MEDS: FUROSEMIDE 20 MG/2 ML IV SCH (09:07)
[2020-11-28] MEDS ORDERED: THIAMINE 100MG TABLET ONE (09:21)
[2020-11-28] MEDS ORDERED: POTASSIUM CHLORIDE 20 MEQ TAB.ER.PRT ONE (10:53)
[2020-11-28] MEDS: POTASSIUM CHLORIDE 20 MEQ TAB.ER.PRT PO SCH ×2 (11:25→17:54)
[2020-11-28] MEDS: CEFTRIAXONE 1,000 MG in DEXTROSE 5% 50 ML IVPB SCH (13:39)
[2020-11-28] MEDS: REMDESIVIR 100 MG in SODIUM CHLORIDE 0.9% 250 ML IVPB SCH (15:01)
[2020-11-28] MEDS: QUETIAPINE 100MG TABLET PO SCH (21:08)
[2020-11-29 06:09] LABS: CHLORIDE 105 mmol/L (98-107)
[2020-11-29 06:14] LABS: ANION GAP 8 mmol/L (5-15); CALCIUM 9.8 mg/dL (8.5-10.1); CREATININE 1.08 mg/dL (0.7-1.3)
[2020-11-29] MEDS: INSULIN LISPRO 100 UNITS/ML, PEN SQ-INSULIN SCH ×4 (07:55→20:52)
[2020-11-29] MEDS ORDERED: DEXMEDETOMIDINE 400 MCG in SODIUM CHLORIDE 0.9% 96 ML IV PRN (09:30)
[2020-11-29] MEDS: THIAMINE 100MG TABLET PO SCH (09:38)
[2020-11-29] MEDS: ASCORBIC ACID 500 MG TABLET PO SCH ×2 (09:38→20:52)
[2020-11-29] MEDS: AMLODIPINE 10 MG TAB PO SCH (09:38)
[2020-11-29] MEDS: RIVAROXABAN 20 MG TABLET PO SCH (09:38)
[2020-11-29] MEDS: CHOLECALCIFEROL 5,000u TAB PO SCH (09:39)
[2020-11-29] MEDS: ZINC SULFATE 220 MG CAPSULE PO SCH (09:39)
[2020-11-29] MEDS: AZITHROMYCIN 250 MG TABLET PO SCH (09:39)
[2020-11-29] MEDS ORDERED: FUROSEMIDE 40 MG/4 ML ONE (09:46)
[2020-11-29] MEDS: FUROSEMIDE 20 MG/2 ML IV SCH ×2 (09:51→20:51)
[2020-11-29] MEDS: DEXAMETHASONE 4 MG/ML, 1ML IVPush SCH (09:52)
[2020-11-29] MEDS: CEFTRIAXONE 1,000 MG in DEXTROSE 5% 50 ML IVPB SCH (12:05)
[2020-11-29] MEDS: DEXMEDETOMIDINE 1,000 MCG in SODIUM CHLORIDE 0.9% 240 ML IV PRN (13:42)
[2020-11-29] MEDS: REMDESIVIR 100 MG in SODIUM CHLORIDE 0.9% 250 ML IVPB SCH (15:17)
[2020-11-29] MEDS: QUETIAPINE 100MG TABLET PO SCH (20:52)
[2020-11-30 04:31] LABS: ALANINE AMINOTRANSFERASE 37 U/L (12-78); ALBUMIN 1.8 g/dL (3.4-5.0); ANION GAP 5 mmol/L (5-15); CALCIUM 9.3 mg/dL (8.5-10.1); CHLORIDE 108 mmol/L (98-107)
[2020-11-30 04:33] LABS: ALKALINE PHOSPHATASE 83 U/L (45-117); BILIRUBIN,TOTAL 0.8 mg/dL (0.2-1.0); TOTAL PROTEIN 6.5 g/dL (6.4-8.2)
[2020-11-30] MEDS: RIVAROXABAN 20 MG TABLET PO SCH (06:05)
[2020-11-30] MEDS: INSULIN LISPRO 100 UNITS/ML, PEN SQ-INSULIN SCH ×4 (08:12→21:00)
[2020-11-30] MEDS: AZITHROMYCIN 250 MG TABLET PO SCH (10:09)
[2020-11-30] MEDS: ZINC SULFATE 220 MG CAPSULE PO SCH (10:09)
[2020-11-30] MEDS: CHOLECALCIFEROL 5,000u TAB PO SCH (10:09)
[2020-11-30] MEDS: ASCORBIC ACID 500 MG TABLET PO SCH ×2 (10:09→21:00)
[2020-11-30] MEDS: AMLODIPINE 10 MG TAB PO SCH (10:10)
[2020-11-30] MEDS: THIAMINE 100MG TABLET PO SCH (10:10)
[2020-11-30] MEDS: DEXAMETHASONE 4 MG/ML, 1ML IVPush SCH (10:10)
[2020-11-30] MEDS: FUROSEMIDE 20 MG/2 ML IV SCH ×2 (10:11→21:00)
[2020-11-30 11:13] LABS: BASOPHILS % (AUTO) 0 % (0-1); EOSINOPHILS % (AUTO) 1 % (1-7); LYMPHOCYTES % (AUTO) 6 % (22-44); MEAN CORPUSCULAR HGB CONC 34.3 g/dL (33.2-36.2); MONOCYTES % (AUTO) 3 % (2-9); NEUTROPHILS % (AUTO) 90 % (42-75); PLATELET COUNT 283 x10^3/uL (130-400)
[2020-11-30] MEDS: DEXMEDETOMIDINE 1,000 MCG in SODIUM CHLORIDE 0.9% 240 ML IV PRN (12:46)
[2020-11-30] MEDS: CEFTRIAXONE 1,000 MG in DEXTROSE 5% 50 ML IVPB SCH (13:27)
[2020-11-30] MEDS: REMDESIVIR 100 MG in SODIUM CHLORIDE 0.9% 250 ML IVPB SCH (15:34)
[2020-11-30] MEDS: QUETIAPINE 100MG TABLET PO SCH (21:00)
[2020-12-01] MEDS: DEXMEDETOMIDINE 1,000 MCG in SODIUM CHLORIDE 0.9% 240 ML IV PRN ×2 (00:38→12:39)
[2020-12-01 05:12] LABS: ANION GAP 9 mmol/L (5-15); CALCIUM 9.1 mg/dL (8.5-10.1); CHLORIDE 103 mmol/L (98-107); CREATININE 0.87 mg/dL (0.7-1.3)
[2020-12-01] MEDS: RIVAROXABAN 20 MG TABLET PO SCH (06:04)
[2020-12-01] MEDS: INSULIN LISPRO 100 UNITS/ML, PEN SQ-INSULIN SCH ×4 (07:21→20:52)
[2020-12-01] MEDS: FUROSEMIDE 40 MG/4 ML IV SCH ×2 (09:01→20:49)
[2020-12-01] MEDS: ZINC SULFATE 220 MG CAPSULE PO SCH (09:37)
[2020-12-01] MEDS: THIAMINE 100MG TABLET PO SCH (09:37)
[2020-12-01] MEDS: CHOLECALCIFEROL 5,000u TAB PO SCH (09:37)
[2020-12-01] MEDS: AZITHROMYCIN 500 MG in SODIUM CHLORIDE 0.9% 250 ML IV SCH (09:37)
[2020-12-01] MEDS: ASCORBIC ACID 500 MG TABLET PO SCH ×2 (09:37→20:48)
[2020-12-01] MEDS: AMLODIPINE 10 MG TAB PO SCH (09:37)
[2020-12-01] MEDS: DEXAMETHASONE 4 MG/ML, 1ML IVPush SCH (10:45)
[2020-12-01] MEDS: CEFTRIAXONE 1,000 MG in DEXTROSE 5% 50 ML IVPB SCH (12:40)
[2020-12-01] MEDS ORDERED: FILTER 0.22 MICRON IV ONE (13:30)
[2020-12-01] MEDS ORDERED: TOCILIZUMAB 800 MG in SODIUM CHLORIDE 0.9% 100 ML IVPB ONE (13:30)
[2020-12-01] MEDS: QUETIAPINE 100MG TABLET PO SCH (20:49)
[2020-12-02] MEDS: DEXMEDETOMIDINE 1,000 MCG in SODIUM CHLORIDE 0.9% 240 ML IV PRN ×2 (00:21→15:18)
[2020-12-02 04:35] LABS: BASOPHILS % (AUTO) 0 % (0-1); EOSINOPHILS % (AUTO) 0 % (1-7); LYMPHOCYTES % (AUTO) 8 % (22-44); MEAN CORPUSCULAR HGB CONC 34.4 g/dL (33.2-36.2); MEAN PLATELET VOLUME 8.8 fL (7.4-10.4); MONOCYTES % (AUTO) 5 % (2-9); NEUTROPHILS % (AUTO) 86 % (42-75); PLATELET COUNT 293 x10^3/uL (130-400); RED CELL DISTRIBUTION WIDTH 14.1 % (9.4-14.8)
[2020-12-02 04:50] LABS: ANION GAP 8 mmol/L (5-15); CALCIUM 9.4 mg/dL (8.5-10.1); CHLORIDE 102 mmol/L (98-107); CREATININE 1.01 mg/dL (0.7-1.3)
[2020-12-02] MEDS: THIAMINE 100MG TABLET PO SCH (09:00)
[2020-12-02] MEDS: DEXAMETHASONE 4 MG/ML, 1ML IVPush SCH (10:04)
[2020-12-02] MEDS: FUROSEMIDE 40 MG/4 ML IV SCH ×2 (10:04→20:19)
[2020-12-02] MEDS: RIVAROXABAN 20 MG TABLET PO SCH (10:05)
[2020-12-02] MEDS: ASCORBIC ACID 500 MG TABLET PO SCH ×2 (10:05→20:19)
[2020-12-02] MEDS: ZINC SULFATE 220 MG CAPSULE PO SCH (10:05)
[2020-12-02] MEDS: CHOLECALCIFEROL 5,000u TAB PO SCH (10:05)
[2020-12-02] MEDS: INSULIN LISPRO 100 UNITS/ML, PEN SQ-INSULIN SCH ×4 (10:06→20:20)
[2020-12-02] MEDS: AMLODIPINE 10 MG TAB PO SCH (10:06)
[2020-12-02] MEDS: AZITHROMYCIN 500 MG in SODIUM CHLORIDE 0.9% 250 ML IV SCH (10:17)
[2020-12-02] MEDS: QUETIAPINE 100MG TABLET PO SCH (20:19)
[2020-12-03] MEDS: DEXMEDETOMIDINE 1,000 MCG in SODIUM CHLORIDE 0.9% 240 ML IV PRN (03:52)
[2020-12-03 05:44] LABS: CHLORIDE 113 mmol/L (98-107)
[2020-12-03 05:48] LABS: ANION GAP 8 mmol/L (5-15); CALCIUM 7.3 mg/dL (8.5-10.1); CREATININE 0.89 mg/dL (0.7-1.3)
[2020-12-03] MEDS: INSULIN LISPRO 100 UNITS/ML, PEN SQ-INSULIN SCH ×4 (07:34→20:53)
[2020-12-03] MEDS: ASCORBIC ACID 500 MG TABLET PO SCH ×2 (09:00→20:51)
[2020-12-03] MEDS: DEXAMETHASONE 4 MG/ML, 1ML IVPush SCH (09:45)
[2020-12-03] MEDS: THIAMINE 100MG TABLET PO SCH (09:46)
[2020-12-03] MEDS: AMLODIPINE 10 MG TAB PO SCH (09:46)
[2020-12-03] MEDS: AZITHROMYCIN 500 MG TABLET PO SCH (09:46)
[2020-12-03] MEDS: RIVAROXABAN 20 MG TABLET PO SCH (09:46)
[2020-12-03] MEDS: POTASSIUM CHLORIDE 20 MEQ PACKET PO SCH ×3 (09:46→20:50)
[2020-12-03] MEDS: FUROSEMIDE 40 MG/4 ML IV SCH ×2 (09:46→20:51)
[2020-12-03] MEDS: CHOLECALCIFEROL 5,000u TAB PO SCH (09:47)
[2020-12-03] MEDS: ZINC SULFATE 220 MG CAPSULE PO SCH (09:47)
[2020-12-03 20:44] VITALS: BP 154/89
[2020-12-03] MEDS: QUETIAPINE 100MG TABLET PO SCH (20:51)
[2020-12-04 01:06] VITALS: BP 109/73
[2020-12-04 03:53] LABS: ANION GAP 6 mmol/L (5-15); CALCIUM 9.5 mg/dL (8.5-10.1); CHLORIDE 105 mmol/L (98-107); CREATININE 1.16 mg/dL (0.7-1.3)
[2020-12-04] MEDS: RIVAROXABAN 20 MG TABLET PO SCH (05:58)
[2020-12-04] MEDS: INSULIN LISPRO 100 UNITS/ML, PEN SQ-INSULIN SCH ×4 (07:00→20:44)
[2020-12-04] MEDS: DEXAMETHASONE 4 MG/ML, 1ML IVPush SCH (08:35)
[2020-12-04] MEDS: FUROSEMIDE 40 MG/4 ML IV SCH ×2 (08:35→20:44)
[2020-12-04] MEDS: THIAMINE 100MG TABLET PO SCH (08:35)
[2020-12-04 08:36] VITALS: BP 155/88
[2020-12-04] MEDS: AMLODIPINE 10 MG TAB PO SCH (08:36)
[2020-12-04] MEDS: AZITHROMYCIN 500 MG TABLET PO SCH (08:36)
[2020-12-04] MEDS: ZINC SULFATE 220 MG CAPSULE PO SCH (08:36)
[2020-12-04] MEDS: ASCORBIC ACID 500 MG TABLET PO SCH ×2 (08:36→20:44)
[2020-12-04] MEDS: CHOLECALCIFEROL 5,000u TAB PO SCH (08:36)
[2020-12-04 13:56] VITALS: BP 123/69
[2020-12-04] MEDS ORDERED: OMNIPAQUE 350 MG/ML, 75ML BOTTLE ONE (16:13)
[2020-12-04 20:30] VITALS: BP 146/78
[2020-12-04] MEDS: QUETIAPINE 100MG TABLET PO SCH (20:44)
[2020-12-05 00:14] VITALS: BP 117/74
[2020-12-05] MEDS: RIVAROXABAN 20 MG TABLET PO SCH (05:21)
[2020-12-05 06:36] LABS: BASOPHILS % (AUTO) 0 % (0-1); EOSINOPHILS % (AUTO) 1 % (1-7); LYMPHOCYTES % (AUTO) 14 % (22-44); MEAN CORPUSCULAR HEMOGLOBIN 28.9 pg (27.5-34.5); MEAN CORPUSCULAR HGB CONC 33.5 g/dL (33.2-36.2); MEAN PLATELET VOLUME 8.4 fL (7.4-10.4); MONOCYTES % (AUTO) 8 % (2-9); NEUTROPHILS % (AUTO) 77 % (42-75); PLATELET COUNT 309 x10^3/uL (130-400); RED BLOOD COUNT 5.52 x10^6/uL (4.38-5.82)
[2020-12-05 06:39] LABS: CHLORIDE 103 mmol/L (98-107)
[2020-12-05 06:50] LABS: ALANINE AMINOTRANSFERASE 33 U/L (12-78); ALBUMIN 2.2 g/dL (3.4-5.0); ALKALINE PHOSPHATASE 88 U/L (45-117); ANION GAP 7 mmol/L (5-15); BILIRUBIN,TOTAL 0.9 mg/dL (0.2-1.0); CALCIUM 9.5 mg/dL (8.5-10.1); CREATININE 1.11 mg/dL (0.7-1.3); TOTAL PROTEIN 6.2 g/dL (6.4-8.2)
[2020-12-05] MEDS: INSULIN LISPRO 100 UNITS/ML, PEN SQ-INSULIN SCH ×4 (07:00→20:10)
[2020-12-05] MEDS: FUROSEMIDE 40 MG/4 ML IV SCH ×2 (08:16→20:10)
[2020-12-05] MEDS: DEXAMETHASONE 4 MG/ML, 1ML IVPush SCH (08:17)
[2020-12-05] MEDS: ASCORBIC ACID 500 MG TABLET PO SCH ×2 (08:18→20:10)
[2020-12-05] MEDS: CHOLECALCIFEROL 5,000u TAB PO SCH (08:18)
[2020-12-05] MEDS: THIAMINE 100MG TABLET PO SCH (08:19)
[2020-12-05] MEDS: AMLODIPINE 10 MG TAB PO SCH (08:19)
[2020-12-05] MEDS: ZINC SULFATE 220 MG CAPSULE PO SCH (08:19)
[2020-12-05 08:31] VITALS: BP 114/72
[2020-12-05 15:58] VITALS: BP 144/95
[2020-12-05 19:20] VITALS: BP 138/92
[2020-12-05] MEDS: QUETIAPINE 100MG TABLET PO SCH (20:10)
[2020-12-06 02:00] VITALS: BP 126/88
[2020-12-06] MEDS: RIVAROXABAN 20 MG TABLET PO SCH (06:33)
[2020-12-06] MEDS: INSULIN LISPRO 100 UNITS/ML, PEN SQ-INSULIN SCH ×4 (07:00→21:00)
[2020-12-06 08:10] VITALS: BP 125/86
[2020-12-06] MEDS: ZINC SULFATE 220 MG CAPSULE PO SCH (09:00)
[2020-12-06] MEDS: THIAMINE 100MG TABLET PO SCH (09:00)
[2020-12-06] MEDS: DEXAMETHASONE 4 MG/ML, 1ML IVPush SCH (09:00)
[2020-12-06] MEDS: CHOLECALCIFEROL 5,000u TAB PO SCH (09:00)
[2020-12-06] MEDS: ASCORBIC ACID 500 MG TABLET PO SCH ×2 (09:00→21:06)
[2020-12-06] MEDS: FUROSEMIDE 40 MG/4 ML IV SCH ×2 (09:00→21:06)
[2020-12-06] MEDS: AMLODIPINE 10 MG TAB PO SCH (09:00)
[2020-12-06 14:00] VITALS: BP 123/79
[2020-12-06 18:49] VITALS: BP 129/84
[2020-12-06] MEDS: QUETIAPINE 100MG TABLET PO SCH (21:05)
[2020-12-07 01:14] VITALS: BP 121/78
[2020-12-07] MEDS: RIVAROXABAN 20 MG TABLET PO SCH (06:14)
[2020-12-07 06:20] LABS: BASOPHILS % (AUTO) 1 % (0-1); EOSINOPHILS % (AUTO) 2 % (1-7); LYMPHOCYTES % (AUTO) 22 % (22-44); MEAN CORPUSCULAR HEMOGLOBIN 29.3 pg (27.5-34.5); MEAN CORPUSCULAR HGB CONC 34.2 g/dL (33.2-36.2); MEAN PLATELET VOLUME 8.7 fL (7.4-10.4); MONOCYTES % (AUTO) 9 % (2-9); NEUTROPHILS % (AUTO) 67 % (42-75); PLATELET COUNT 259 x10^3/uL (130-400); RED BLOOD COUNT 5.61 x10^6/uL (4.38-5.82); RED CELL DISTRIBUTION WIDTH 14.4 % (9.4-14.8)
[2020-12-07 06:35] LABS: CHLORIDE 103 mmol/L (98-107)
[2020-12-07 06:41] LABS: D-DIMER 4.2 ug/mlFEU (0.00-0.52)
[2020-12-07 06:55] LABS: ANION GAP 5 mmol/L (5-15); C-REACTIVE PROTEIN, QUANT 0.28 mg/dL (0.02-0.49); CALCIUM 9.7 mg/dL (8.5-10.1); CREATININE 1.05 mg/dL (0.7-1.3)
[2020-12-07] MEDS: INSULIN LISPRO 100 UNITS/ML, PEN SQ-INSULIN SCH ×4 (07:00→20:49)
[2020-12-07 08:26] VITALS: BP 129/93
[2020-12-07] MEDS: AMLODIPINE 10 MG TAB PO SCH (08:41)
[2020-12-07] MEDS: ZINC SULFATE 220 MG CAPSULE PO SCH (08:41)
[2020-12-07] MEDS: CHOLECALCIFEROL 5,000u TAB PO SCH (08:41)
[2020-12-07] MEDS: THIAMINE 100MG TABLET PO SCH (08:41)
[2020-12-07] MEDS: ASCORBIC ACID 500 MG TABLET PO SCH ×2 (08:41→20:49)
[2020-12-07] MEDS: DEXAMETHASONE 4 MG/ML, 1ML IVPush SCH (08:42)
[2020-12-07] MEDS: FUROSEMIDE 40 MG/4 ML IV SCH ×2 (08:42→20:49)
[2020-12-07] MEDS: QUETIAPINE 100MG TABLET PO SCH (20:50)
[2020-12-07 21:58] VITALS: BP 132/76
[2020-12-08 03:24] VITALS: BP 131/81
[2020-12-08] MEDS: RIVAROXABAN 20 MG TABLET PO SCH (05:44)
[2020-12-08] MEDS: INSULIN LISPRO 100 UNITS/ML, PEN SQ-INSULIN SCH ×4 (07:00→21:35)
[2020-12-08 08:27] VITALS: BP 134/88
[2020-12-08] MEDS: AMLODIPINE 10 MG TAB PO SCH (08:52)
[2020-12-08] MEDS: CHOLECALCIFEROL 5,000u TAB PO SCH (08:52)
[2020-12-08] MEDS: THIAMINE 100MG TABLET PO SCH (08:52)
[2020-12-08] MEDS: ZINC SULFATE 220 MG CAPSULE PO SCH (08:52)
[2020-12-08] MEDS: DEXAMETHASONE 4 MG/ML, 1ML IVPush SCH (08:52)
[2020-12-08] MEDS: ASCORBIC ACID 500 MG TABLET PO SCH ×2 (08:52→20:11)
[2020-12-08] MEDS: FUROSEMIDE 40 MG/4 ML IV SCH ×2 (08:53→20:10)
[2020-12-08 11:34] LABS: ANION GAP 9 mmol/L (5-15); CALCIUM 9.5 mg/dL (8.5-10.1); CHLORIDE 100 mmol/L (98-107); CREATININE 1.15 mg/dL (0.7-1.3)
[2020-12-08 13:11] VITALS: BP 131/88
[2020-12-08 18:35] VITALS: BP 136/92
[2020-12-08] MEDS: QUETIAPINE 100MG TABLET PO SCH (20:10)
[2020-12-09 01:30] VITALS: BP 132/77
[2020-12-09 04:35] LABS: ANION GAP 7 mmol/L (5-15); CALCIUM 9.7 mg/dL (8.5-10.1); CHLORIDE 100 mmol/L (98-107)
[2020-12-09 04:36] LABS: CREATININE 1.11 mg/dL (0.7-1.3)
[2020-12-09] MEDS: RIVAROXABAN 20 MG TABLET PO SCH (05:38)
[2020-12-09 08:04] VITALS: BP 125/72
[2020-12-09] MEDS: INSULIN LISPRO 100 UNITS/ML, PEN SQ-INSULIN SCH ×4 (09:27→20:13)
[2020-12-09] MEDS: DEXAMETHASONE 4 MG/ML, 1ML IVPush SCH (09:27)
[2020-12-09] MEDS: FUROSEMIDE 40 MG/4 ML IV SCH ×2 (09:27→20:12)
[2020-12-09] MEDS: ZINC SULFATE 220 MG CAPSULE PO SCH (09:28)
[2020-12-09] MEDS: ASCORBIC ACID 500 MG TABLET PO SCH ×2 (09:28→20:12)
[2020-12-09] MEDS: CHOLECALCIFEROL 5,000u TAB PO SCH (09:28)
[2020-12-09] MEDS: AMLODIPINE 10 MG TAB PO SCH (09:28)
[2020-12-09] MEDS: THIAMINE 100MG TABLET PO SCH (09:28)
[2020-12-09 15:15] VITALS: BP 125/85
[2020-12-09] MEDS: POTASSIUM CHLORIDE 20 MEQ TAB.ER.PRT PO SCH ×2 (15:38→20:12)
[2020-12-09 19:34] VITALS: BP 120/80
[2020-12-09] MEDS: QUETIAPINE 100MG TABLET PO SCH (20:12)
[2020-12-10 01:22] VITALS: BP 132/79
[2020-12-10] MEDS: RIVAROXABAN 20 MG TABLET PO SCH (05:37)
[2020-12-10] MEDS: INSULIN LISPRO 100 UNITS/ML, PEN SQ-INSULIN SCH ×4 (07:00→20:50)
[2020-12-10 08:11] VITALS: BP 128/87
[2020-12-10] MEDS: POTASSIUM CHLORIDE 20 MEQ TAB.ER.PRT PO SCH ×2 (08:50→17:23)
[2020-12-10] MEDS: ASCORBIC ACID 500 MG TABLET PO SCH ×2 (08:50→20:14)
[2020-12-10] MEDS: ZINC SULFATE 220 MG CAPSULE PO SCH (08:51)
[2020-12-10] MEDS: THIAMINE 100MG TABLET PO SCH (08:51)
[2020-12-10] MEDS: AMLODIPINE 10 MG TAB PO SCH (08:51)
[2020-12-10] MEDS: FUROSEMIDE 40 MG/4 ML IV SCH ×2 (08:52→20:13)
[2020-12-10] MEDS: DEXAMETHASONE 4 MG/ML, 1ML IVPush SCH (08:52)
[2020-12-10] MEDS: CHOLECALCIFEROL 5,000u TAB PO SCH (08:53)
[2020-12-10 12:13] LABS: ANION GAP 7 mmol/L (5-15); CALCIUM 9.6 mg/dL (8.5-10.1); CHLORIDE 98 mmol/L (98-107); CREATININE 1.02 mg/dL (0.7-1.3)
[2020-12-10 12:21] VITALS: BP 128/83
[2020-12-10 18:56] VITALS: BP 130/84
[2020-12-10] MEDS: QUETIAPINE 100MG TABLET PO SCH (20:14)
[2020-12-10] MEDS: INSULIN GLARGINE 100 UNITS/ML, PEN SQ-INSULIN SCH (20:50)
[2020-12-11] MEDS: RIVAROXABAN 20 MG TABLET PO SCH (05:09)
[2020-12-11] MEDS: INSULIN LISPRO 100 UNITS/ML, PEN SQ-INSULIN SCH ×4 (07:00→21:12)
[2020-12-11] MEDS: ZINC SULFATE 220 MG CAPSULE PO SCH (08:54)
[2020-12-11] MEDS: THIAMINE 100MG TABLET PO SCH (08:54)
[2020-12-11] MEDS: AMLODIPINE 10 MG TAB PO SCH (08:54)
[2020-12-11] MEDS: CHOLECALCIFEROL 5,000u TAB PO SCH (08:55)
[2020-12-11] MEDS: DEXAMETHASONE 4 MG/ML, 1ML IVPush SCH (08:55)
[2020-12-11] MEDS: POTASSIUM CHLORIDE 20 MEQ TAB.ER.PRT PO SCH ×2 (08:55→16:24)
[2020-12-11] MEDS: ASCORBIC ACID 500 MG TABLET PO SCH ×2 (08:55→21:03)
[2020-12-11] MEDS: FUROSEMIDE 40 MG/4 ML IV SCH ×2 (08:55→21:05)
[2020-12-11] MEDS: INSULIN GLARGINE 100 UNITS/ML, PEN SQ-INSULIN SCH ×2 (08:56→21:11)
[2020-12-11 10:31] VITALS: BP 134/87
[2020-12-11 13:15] LABS: BASOPHILS % (AUTO) 0 % (0-1); D-DIMER 1.97 ug/mlFEU (0.00-0.52); EOSINOPHILS % (AUTO) 0 % (1-7); LYMPHOCYTES % (AUTO) 10 % (22-44); MEAN CORPUSCULAR HGB CONC 33.4 g/dL (33.2-36.2); MEAN PLATELET VOLUME 9.6 fL (7.4-10.4); MONOCYTES % (AUTO) 6 % (2-9); NEUTROPHILS % (AUTO) 84 % (42-75); PLATELET COUNT 261 x10^3/uL (130-400); RED BLOOD COUNT 5.49 x10^6/uL (4.38-5.82); RED CELL DISTRIBUTION WIDTH 14.3 % (9.4-14.8)
[2020-12-11 13:17] LABS: ALANINE AMINOTRANSFERASE 53 U/L (12-78); ALBUMIN 2.8 g/dL (3.4-5.0); ANION GAP 8 mmol/L (5-15); C-REACTIVE PROTEIN, QUANT 0.07 mg/dL (0.02-0.49); CALCIUM 9.4 mg/dL (8.5-10.1); CHLORIDE 99 mmol/L (98-107)
[2020-12-11 13:22] LABS: ALKALINE PHOSPHATASE 109 U/L (45-117); BILIRUBIN,TOTAL 0.7 mg/dL (0.2-1.0); TOTAL PROTEIN 6.6 g/dL (6.4-8.2)
[2020-12-11 16:27] VITALS: BP 140/92
--- NOTE | 2020-12-11 16:36 | NUR ---
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
[2020-12-11] MEDS: QUETIAPINE 100MG TABLET PO SCH (21:04)
[2020-12-11 21:16] VITALS: BP 139/81
[2020-12-12 02:00] VITALS: BP 132/88
[2020-12-12] MEDS: RIVAROXABAN 20 MG TABLET PO SCH (05:35)
[2020-12-12] MEDS: THIAMINE 100MG TABLET PO SCH (08:05)
[2020-12-12] MEDS: CHOLECALCIFEROL 5,000u TAB PO SCH (08:05)
[2020-12-12] MEDS: POTASSIUM CHLORIDE 20 MEQ TAB.ER.PRT PO SCH ×2 (08:05→16:38)
[2020-12-12] MEDS: ZINC SULFATE 220 MG CAPSULE PO SCH (08:06)
[2020-12-12] MEDS: AMLODIPINE 10 MG TAB PO SCH (08:06)
[2020-12-12] MEDS: ASCORBIC ACID 500 MG TABLET PO SCH ×2 (08:06→21:26)
[2020-12-12] MEDS: DEXAMETHASONE 4 MG/ML, 1ML IVPush SCH (08:06)
[2020-12-12] MEDS: FUROSEMIDE 40 MG/4 ML IV SCH ×2 (08:06→21:26)
[2020-12-12] MEDS: INSULIN LISPRO 100 UNITS/ML, PEN SQ-INSULIN SCH ×4 (08:07→21:33)
[2020-12-12] MEDS: INSULIN GLARGINE 100 UNITS/ML, PEN SQ-INSULIN SCH ×2 (08:07→21:34)
[2020-12-12 08:15] VITALS: BP 136/86
[2020-12-12 12:43] LABS: ANION GAP 7 mmol/L (5-15); CALCIUM 9.3 mg/dL (8.5-10.1); CHLORIDE 100 mmol/L (98-107); CREATININE 1.04 mg/dL (0.7-1.3)
[2020-12-12 13:17] VITALS: BP 109/77
[2020-12-12 19:23] VITALS: BP 113/82
[2020-12-12] MEDS ORDERED: MELATONIN 5 MG TABLET ONE (21:20)
[2020-12-12] MEDS: QUETIAPINE 100MG TABLET PO SCH (21:26)
[2020-12-13 02:00] VITALS: BP 118/88
[2020-12-13] MEDS: RIVAROXABAN 20 MG TABLET PO SCH (06:20)
[2020-12-13] MEDS: INSULIN LISPRO 100 UNITS/ML, PEN SQ-INSULIN SCH ×2 (07:00→12:47)
[2020-12-13] MEDS: POTASSIUM CHLORIDE 20 MEQ TAB.ER.PRT PO SCH (08:09)
[2020-12-13] MEDS: ZINC SULFATE 220 MG CAPSULE PO SCH (09:35)
[2020-12-13] MEDS: ASCORBIC ACID 500 MG TABLET PO SCH (09:35)
[2020-12-13] MEDS: FUROSEMIDE 40 MG/4 ML IV SCH (09:35)
[2020-12-13] MEDS: AMLODIPINE 10 MG TAB PO SCH (09:35)
[2020-12-13] MEDS: CHOLECALCIFEROL 5,000u TAB PO SCH (09:35)
[2020-12-13] MEDS: THIAMINE 100MG TABLET PO SCH (09:35)
[2020-12-13] MEDS: DEXAMETHASONE 4 MG/ML, 1ML IVPush SCH (09:36)
[2020-12-13 09:37] VITALS: BP 135/87
[2020-12-13] MEDS: INSULIN GLARGINE 100 UNITS/ML, PEN SQ-INSULIN SCH (09:37)
[2020-12-13] MEDS ORDERED: ZINC220C8 PO (11:05)
[2020-12-13] MEDS ORDERED: CHOL500045 PO (11:05)
[2020-12-13] MEDS ORDERED: ASCO500T9 PO (11:05)
[2020-12-13 12:23] LABS: BASOPHILS % (AUTO) 1 % (0-1); EOSINOPHILS % (AUTO) 1 % (1-7); LYMPHOCYTES % (AUTO) 12 % (22-44); MEAN CORPUSCULAR HEMOGLOBIN 29.5 pg (27.5-34.5); MEAN CORPUSCULAR HGB CONC 33.8 g/dL (33.2-36.2); MEAN PLATELET VOLUME 9.4 fL (7.4-10.4); MONOCYTES % (AUTO) 5 % (2-9); NEUTROPHILS % (AUTO) 82 % (42-75); PLATELET COUNT 206 x10^3/uL (130-400); RED BLOOD COUNT 5.31 x10^6/uL (4.38-5.82); RED CELL DISTRIBUTION WIDTH 14.3 % (9.4-14.8)
[2020-12-13 12:29] LABS: ANION GAP 5 mmol/L (5-15); CHLORIDE 100 mmol/L (98-107)
== END 2020-12-13 16:49 | DRG 177 ==
LOC: ED 20:38 → EDIP 20:59 → CCU 11-28 13:09 → 4WST 12-03 18:20
PROVIDERS: ADMIT Internal Medicine; ATTEND Family Medicine
PROC: XW033E5 Introduction of Remdesivir Anti-infective into Peripheral Vein, Percutaneous Approach, New Technology Group 5 (ICD-10-PCS; principal; 2020-11-25)
PROC: 5A09357 Assistance with Respiratory Ventilation, Less than 24 Consecutive Hours, Continuous Positive Airway Pressure (ICD-10-PCS; 2020-11-28)
PROC: 5A09457 Assistance with Respiratory Ventilation, 24-96 Consecutive Hours, Continuous Positive Airway Pressure (ICD-10-PCS; 2020-11-29)
PROC: XW033H5 Introduction of Tocilizumab into Peripheral Vein, Percutaneous Approach, New Technology Group 5 (ICD-10-PCS; 2020-12-01)
PROC: 5A0935A Assistance with Respiratory Ventilation, Less than 24 Consecutive Hours, High Flow/Velocity Cannula (ICD-10-PCS; 2020-12-01)
PROC: 5A0945A Assistance with Respiratory Ventilation, 24-96 Consecutive Hours, High Flow/Velocity Cannula (ICD-10-PCS; 2020-12-02)
PROC: 5A0945A Assistance with Respiratory Ventilation, 24-96 Consecutive Hours, High Flow/Velocity Cannula (ICD-10-PCS; 2020-12-09)
DX: U07.1 COVID-19 (principal); J96.01 Acute respiratory failure with hypoxia; J12.82 Pneumonia due to coronavirus disease 2019; I69.354 Hemiplegia and hemiparesis following cerebral infarction affecting left non-dominant side; I10 Essential (primary) hypertension; E78.5 Hyperlipidemia, unspecified; B19.20 Unspecified viral hepatitis C without hepatic coma; F15.10 Other stimulant abuse, uncomplicated; E66.9 Obesity, unspecified; N28.9 Disorder of kidney and ureter, unspecified; R73.9 Hyperglycemia, unspecified; T38.0X5A Adverse effect of glucocorticoids and synthetic analogues, initial encounter; R13.10 Dysphagia, unspecified; Z68.31 Body mass index [BMI] 31.0-31.9, adult; Y92.89 Other specified places as the place of occurrence of the external cause; Z91.19 Patient's noncompliance with other medical treatment and regimen
CPT/HCPCS: 36415; 36600; 71045; 71275; 74230; 80048; 80053; 80074; 82728; 82803; 82962; 83036; 83605; 83615; 83735; 83880; 84100; 84145; 85025; 85049; 85379; 85384; 85610; 85730; 86140; 87040; 87081; 87521; 87806; 93005; 94660; 96365; 96366; 99285; G0378; J0456; J0696; J1100; J1650; J1940; Q9967; U0005; G0475; J1815; J3262; J7050; U0003